=== PATIENT | male | born 1960 | race Caucasian/White ===

== ENCOUNTER 2020-04-03 17:35 | Inpatient (IN) | payer OTHER ==
[~2020-04-03 17:35] MED LIST: Iopamidol-370 76% 500 ML 1 ML ONE
[2020-04-03] MEDS ORDERED: Morphine 4 MG/ML VIAL ONE ×2 (17:51→19:46)
[2020-04-03] MEDS ORDERED: Ondansetron PF 4 MG/2 ML Vial ONE (17:51)
[2020-04-03 18:05] LABS: #Eosinphils 0.2 thou/uL (0.0-0.7); #Monocytes 0.8 thou/uL (0.11-0.59); #Neutrophils 6.3 thou/uL (1.40-6.50); %Basophils 0.3 % (0.0-1.0); %Lymphocytes 21.8 % (21.0-51.0); %Monocytes 8.4 % (0.0-10.0); %Neutrophils 67.5 % (42.0-75.0); Hemoglobin 12.5 g/dL (14.0-18.0); Mean Corpuscular HGB CONC 34.7 g/dL (32.0-36.0); Mean Corpuscular Hemoglobin 29.2 pg (27.0-31.0); Mean Platelet Volume 9.3 fL (7.4-10.4); Platelet Count 205 thou/uL (130-400); RBC Distribution Width 13.3 % (11.5-14.5); Red Blood Cell (RBC) Count 4.29 mill/uL (4.70-6.10); White Blood Cell (WBC) Count 9.3 thou/uL (4.8-10.8)
--- NOTE | 2020-04-03 18:05 | RAD ---
PORTABLE SUPINE CHEST: 04/03/20 INDICATION: Chest pain, shortness of breath. No comparison. The lung michaels appear clear. No infiltrate or vascular congestion. Heart and mediastinum unremarkabl e for this projection. IMPRESSION: No acute process identified. POS: AGW
--- NOTE | 2020-04-03 18:14 | RAD ---
LEFT HIP: 04/03/20 Two views. HISTORY: Injury. No evidence of fracture. No osseous abnormality identified. IMPRESSION: No acute findings. POS: AGW
--- NOTE | 2020-04-03 18:15 | RAD ---
2 views left forearm: 04/03/2020 COMPARISON: None HISTORY: Injury, trauma, pain FINDINGS: No fracture or dislocation. No radiopaque foreign body or subcutaneous gas. IMPRESSION: No acute findings.
--- NOTE | 2020-04-03 18:15 | RAD ---
Left ankle 2 views: 04/03/2020 COMPARISON: None HISTORY: Injury, trauma, pain FINDINGS: No fracture or dislocation. No radiopaque foreign body or subcutaneous gas. Mild enthesophy te formation at the origin of the plantar aponeurosis. IMPRESSION: No acute findings.
[2020-04-03 18:20] LABS: ALT (SGPT) 46 U/L (8-55); AST (SGOT) 39 U/L (5-34); Albumin 4.1 g/dL (3.5-5.0); Alkaline Phosphatase 53 U/L (40-110); Anion Gap 15 mmol/L (10-20); BUN (Urea Nitrogen) 74 mg/dL (8.4-25.7); Bilirubin, Total 0.3 mg/dL (0.2-1.2); Calc. Creatinine Clearance 0 mL/min (70-130); Calcium 9.3 mg/dL (7.8-10.44); Carbon Dioxide 21 mmol/L (22-29); Chloride 107 mmol/L (98-107); Estimated GFR-MDRD 23; Globulin 3.8 g/dL (2.4-3.5); Glucose 115 mg/dL (70-105); Potassium 4.3 mmol/L (3.5-5.1); Protein, Total 7.9 g/dL (6.0-8.3); Sodium 139 mmol/L (136-145)
--- NOTE | 2020-04-03 18:26 | RAD ---
LEFT KNEE: 04/03/20 Three views. HISTORY: Trauma. There is a fracture involving the lateral tibial plateau and lateral tibial condyle. Displacement of the plateau with depression. There is joint effusion with hematocrit level. IMPRESSION: Displaced fracture involving the lateral tibial plateau and lateral tibial condyle. POS: AGW
--- NOTE | 2020-04-03 18:27 | RAD ---
LEFT HAND: 04/03/20 Two views. HISTORY: Trauma. The carpals, metacarpals, and phalanges, appear intact on the two view study. There are mild degenera tive changes noted at the carpometacarpal joints, MCP and IP joints. IMPRESSION: No acute fracture identified. POS: AGW
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
--- NOTE | 2020-04-03 18:37 | CT ---
Head CT without contrast 04/03/2020: Comparison: None HISTORY: Injury, trauma, pain TECHNIQUE: Axial CT imaging at 5 mm intervals from vertex through skull base without contrast FINDINGS: The visualized paranasal sinuses and mastoid air cells are well-aerated. No displaced jamie rial fracture. No intracranial hemorrhage, midline shift, mass effect, or ventricular enlargement. IMPRESSION: No acute findings. Results called to Dr. Angel at 6:32 PM 04/03/2020
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
[2020-04-03] MEDS ORDERED: Acetaminophen 500 MG TAB ONE (19:46)
[2020-04-03] MEDS ORDERED: Gabapentin 300 MG CAP PO SCH (20:15)
[2020-04-03] MEDS ORDERED: Dextrose 50% Abboject 50 ML SYRINGE SLOW IVP PRN (21:26)
[2020-04-03] MEDS ORDERED: Dextrose 5% in Water 1,000 ML IV PRN (21:26)
[2020-04-03] MEDS ORDERED: HumaLOG 300 UNITS/3 ML VIAL SC PRN (21:29)
[2020-04-03] MEDS ORDERED: [UNRECOGNIZED DRUG - REMARK] PO SCH (21:30)
[2020-04-03 21:54] LABS: INR-International Normal Ratio 0.9; PTT 29.6 sec (22.9-36.1); Prothrombin Time 12.7 sec (12.0-14.7)
[2020-04-03] MEDS ORDERED: Lactated Ringer's 500 ML IV SCH (22:00)
--- NOTE | 2020-04-03 22:00 | CT ---
CT of the left knee: 04/03/2020 COMPARISON: None HISTORY: Trauma, tibial plateau fracture seen on recent radiograph TECHNIQUE: Axial CT imaging at 2.5 mm intervals through the left knee with coronal and sagittal refor matted imaging FINDINGS: There is a prominent lipomatous arthrosis present. There is skin thickening and subcutaneou s fat stranding within the distal aspect of the left thigh medially. No evidence for a patellar fracture. Imaged portions of the distal femur are intact. There is extensive comminuted fracture deformity involving the proximal tibia. Nondisplaced fracture lines extend through the medial tibial plateau obliquely and transversely. No evidence for depression is seen involving the medial tibial plateau fracture. There is a comminuted and displaced lateral tibial plateau fracture as well. The lateral tibial fracture fragment is displaced laterally by approximately 6 mm and there is approximately 4 mm of depression involving the lateral t ibial plateau fracture. No evidence for dislocation. No evidence for a fibular fracture. IMPRESSION: Extensive fracture deformity involving the articular aspect of the proximal left tibia. F ractures include the medial and lateral tibial plateaus. Lateral tibial plateau fracture demonstrates depression and lateral displacement as detailed above.
[2020-04-03] MEDS: Sodium Chloride 0.9% 1,000 ML IV SCH (23:06)
[2020-04-03] MEDS: Acetaminophen 500 MG TAB PO SCH (23:06)
[2020-04-03] MEDS: Ondansetron PF 4 MG/2 ML Vial IVP PRN (23:06)
[2020-04-03] MEDS: traMADol HCl 50 MG TAB PO SCH (23:07)
[2020-04-03] MEDS: Cyclobenzaprine 10 MG TAB PO PRN (23:07)
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
[2020-04-03 23:55] VITALS: BMI 35.2
[2020-04-04] MEDS: Morphine 4 MG/ML VIAL SLOW IVP PRN ×4 (00:51→21:41)
[2020-04-04] MEDS: traMADol HCl 50 MG TAB PO SCH ×4 (05:42→23:40)
[2020-04-04] MEDS: Acetaminophen 500 MG TAB PO SCH ×4 (05:42→23:40)
[2020-04-04 06:00] LABS: #Lymphocytes 0.9 thou/uL (1.20-3.40); #Monocytes 0.6 thou/uL (0.11-0.59); #Neutrophils 8.7 thou/uL (1.40-6.50); %Basophils 0.1 % (0.0-1.0); %Eosinophils 0.2 % (0.0-10.0); %Lymphocytes 9.2 % (21.0-51.0); %Monocytes 6.1 % (0.0-10.0); %Neutrophils 84.5 % (42.0-75.0); Hemoglobin 11.2 g/dL (14.0-18.0); Mean Corpuscular HGB CONC 35.3 g/dL (32.0-36.0); Mean Platelet Volume 9.9 fL (7.4-10.4); Platelet Count 158 thou/uL (130-400); RBC Distribution Width 13.4 % (11.5-14.5); Red Blood Cell (RBC) Count 3.73 mill/uL (4.70-6.10); White Blood Cell (WBC) Count 10.3 thou/uL (4.8-10.8)
[2020-04-04 06:10] LABS: Hemoglobin A1c 8.6 % (4.0-6.0)
[2020-04-04 06:23] LABS: Phosphorus 5.2 mg/dL (2.3-4.7)
[2020-04-04 06:26] LABS: Anion Gap 15 mmol/L (10-20); BUN (Urea Nitrogen) 69 mg/dL (8.4-25.7); Calc. Creatinine Clearance 50 mL/min (70-130); Calcium 8.6 mg/dL (7.8-10.44); Carbon Dioxide 18 mmol/L (22-29); Chloride 106 mmol/L (98-107); Estimated GFR-MDRD 24; Glucose 253 mg/dL (70-105); Magnesium 2.4 mg/dL (1.6-2.6); Potassium 5.3 mmol/L (3.5-5.1); Sodium 134 mmol/L (136-145)
[2020-04-04] MEDS ORDERED: Gabapentin 300 MG CAP PO SCH (09:00)
[2020-04-04] MEDS ORDERED: FLU VACC QS2020-21(6MOS UP)/PF 60 MCG/0.5 ML SYRINGE IM ONE (09:00)
--- NOTE | 2020-04-04 10:36 | RAD ---
PORTABLE CHEST: DATE: 04/04/2020. PROVIDED CLINICAL HISTORY: Trauma. FINDINGS: Comparison is made with the examination dated 04/03/2020. The cardiac silhouette appears enlarged. There is increased density at the left lung base which may reflect left basilar parenchymal opacity. Evaluation is limited by patient body habitus, portable technique, cardiomegaly, and lung hypoinflat ion. Lungs appear otherwise clear. No pleural fluid or pneumothorax apparent. IMPRESSION: Possible left basilar opacity. POS: ISSAC
[2020-04-04] MEDS: Ondansetron PF 4 MG/2 ML Vial IVP PRN ×2 (11:45→21:41)
[2020-04-04] MEDS: Sodium Chloride 0.9% 1,000 ML IV SCH (11:47)
[2020-04-04 12:40] LABS: SARS-CoV-2 MS2 Positive; SARS-CoV-2 N Gene Negative; SARS-CoV-2 S Gene Negative; SARS-CoV-2 by NAA Not Detected (NotDetected); SARS-CoV-2 orf1ab Negative
[2020-04-04] MEDS ORDERED: PHENYLEPHRINE-NS 100 MCG/ML 10 ML SYRINGE ONE (13:00)
[2020-04-04] MEDS ORDERED: EPHEDRINE 25 MG/5 ML SYRINGE ONE (13:00)
[2020-04-04] MEDS: Insulin Regular 300 UNITS/3 ML VIAL SC PRN ×3 (13:26→21:28)
[2020-04-04] MEDS ORDERED: Insulin Glargine 30 UNITS in Pre-Filled Syringe 1 EACH SC SCH (14:45)
[2020-04-04] MEDS ORDERED: Morphine 4 MG/ML VIAL SLOW IVP SCH (14:45)
[2020-04-04] MEDS: Metoclopramide HCl 10 MG/2 ML VIAL IVP PRN ×2 (15:04→20:21)
[2020-04-04] MEDS: Albuterol 200 PUFF (6.7GM INHALER) INH SCH ×2 (15:26→18:34)
[2020-04-04] MEDS ORDERED: Levofloxacin 500 mg/D5W 100 ml Premix Bag ONE (15:30)
[2020-04-04] MEDS ORDERED: Clindamycin/D5W 900 mg/50 ml Premix Bag ONE (15:30)
[2020-04-04] MEDS ORDERED: Midazolam HCl 2 mg/2 ml Vial ONE (16:15)
[2020-04-04] MEDS ORDERED: Fentanyl 100 MCG/2 ML VIAL ONE ×3 (16:15→19:21)
[2020-04-04] MEDS ORDERED: Ketamine 50 MG/ML (10ML VIAL) ONE (16:22)
[2020-04-04] MEDS ORDERED: Propofol 500 MG/50 ML VIAL ONE (16:22)
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
--- NOTE | 2020-04-04 18:32 | RAD ---
Intraoperative imaging of the left knee: 04/04/2020 HISTORY: Fracture FINDINGS: 3 intraoperative images demonstrate treatment of the previously noted fracture of the proxi mal tibia with a lateral screw and plate fixation. There is anatomic alignment at the fracture site IMPRESSION: Intraoperative imaging as above.
[2020-04-04] MEDS ORDERED: Ondansetron HCl/PF 4 MG/2 ML Vial IVP PRN (18:44)
[2020-04-04] MEDS ORDERED: Promethazine HCl 25 MG/ML VIAL SLOW IVP PRN (18:44)
[2020-04-04] MEDS ORDERED: Promethazine HCl 25 MG/ML VIAL IM PRN (18:44)
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
[2020-04-04] MEDS: Insulin Glargine 30 UNITS in Pre-Filled Syringe 1 EACH SC SCH (20:21)
[2020-04-04] MEDS: Atorvastatin Calcium 10 MG TAB PO SCH (20:21)
[2020-04-04] MEDS ORDERED: Pravastatin Sodium 40 MG TAB PO SCH (21:00)
[2020-04-04] MEDS: Clindamycin/D5W 900 MG in Premix Bag 1 BAG IVPB SCH (21:44)
[2020-04-04] MEDS ORDERED: Insulin Glargine 10 UNITS in Pre-Filled Syringe 1 EACH SC SCH (22:15)
[2020-04-04] MEDS: Cyclobenzaprine 10 MG TAB PO PRN (23:40)
[2020-04-04] MEDS: HumaLOG 300 UNITS/3 ML VIAL SC PRN (23:58)
[2020-04-05] MEDS: Albuterol 200 PUFF (6.7GM INHALER) INH SCH ×4 (00:13→19:29)
[2020-04-05] MEDS ORDERED: Sodium Chloride 0.9% 500 ML IV SCH (00:15)
[2020-04-05] MEDS: Morphine 4 MG/ML VIAL SLOW IVP PRN (01:24)
[2020-04-05] MEDS ORDERED: oxyCODONE 5 MG TAB PO SCH (02:00)
[2020-04-05] MEDS: Sodium Chloride 0.9% 1,000 ML IV SCH ×2 (02:49→17:17)
[2020-04-05] MEDS: traMADol HCl 50 MG TAB PO SCH ×2 (05:32→20:22)
[2020-04-05] MEDS: Clindamycin/D5W 900 MG in Premix Bag 1 BAG IVPB SCH (05:33)
[2020-04-05] MEDS: Acetaminophen 500 MG TAB PO SCH ×4 (05:33→23:28)
[2020-04-05] MEDS: HumaLOG 300 UNITS/3 ML VIAL SC PRN ×3 (05:34→12:53)
[2020-04-05 06:22] LABS: #Lymphocytes 0.7 thou/uL (1.20-3.40); #Monocytes 0.9 thou/uL (0.11-0.59); #Neutrophils 10.2 thou/uL (1.40-6.50); %Basophils 0.1 % (0.0-1.0); %Eosinophils 0.3 % (0.0-10.0); %Lymphocytes 5.9 % (21.0-51.0); %Monocytes 7.9 % (0.0-10.0); %Neutrophils 85.8 % (42.0-75.0); Hemoglobin 10.1 g/dL (14.0-18.0); Mean Corpuscular HGB CONC 33.1 g/dL (32.0-36.0); Mean Corpuscular Hemoglobin 28.9 pg (27.0-31.0); Mean Corpuscular Volume 87.5 fL (78.0-98.0); Mean Platelet Volume 9.7 fL (7.4-10.4); Platelet Count 162 thou/uL (130-400); RBC Distribution Width 13.6 % (11.5-14.5); White Blood Cell (WBC) Count 11.9 thou/uL (4.8-10.8)
[2020-04-05 06:39] LABS: Anion Gap 15 mmol/L (10-20); BUN (Urea Nitrogen) 74 mg/dL (8.4-25.7); Calc. Creatinine Clearance 43 mL/min (70-130); Calcium 8.5 mg/dL (7.8-10.44); Carbon Dioxide 21 mmol/L (22-29); Chloride 105 mmol/L (98-107); Estimated GFR-MDRD 21; Glucose 300 mg/dL (70-105); Magnesium 2.6 mg/dL (1.6-2.6); Potassium 5.1 mmol/L (3.5-5.1); Sodium 136 mmol/L (136-145)
--- NOTE | 2020-04-05 08:18 | RAD ---
PORTABLE CHEST: HISTORY: Rib fractures. Lower lobe opacity. COMPARISON: 04/04/2020 exam. FINDINGS: Heart size is enlarged. Some increased density in the retrocardiac region is still apparent which co uld represent atelectasis versus some infiltrate. IMPRESSION: 1. Cardiomegaly. 2. Some more linear parenchymal change in the retrocardiac region suggesting atelectasis versus deve loping infiltrates. Overall stable exam. POS: SHERICE
[2020-04-05] MEDS: Insulin Glargine 30 UNITS in Pre-Filled Syringe 1 EACH SC SCH (08:19)
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
[2020-04-05] MEDS: Enoxaparin Sodium 30 MG/0.3 ML SYRINGE SC SCH (09:57)
--- NOTE | 2020-04-05 10:52 | RAD ---
Portable frontal chest radiograph: 04/05/2020 10:48am COMPARISON: 04/05/2020 HISTORY: Gastroparesis FINDINGS: This study is compared to the prior study performed at 5:14 AM. Heart and mediastinal conto urs are stable. Mild linear interstitial density noted in the perihilar regions. No pneumothorax, lobar consolidation, or alveolar edema. Aeration in the left base has slightly improved. IMPRESSION: Slight interval improvement in left basilar aeration-otherwise unchanged.
--- NOTE | 2020-04-05 11:47 | RAD ---
SUPINE ABDOMEN: Date: 04/05/2020 INDICATION: Gastroparesis. Comparison made to CT abdomen dated 04/03/2020. FINDINGS: Gaseous distention of the stomach. Scattered stool and gas in the colon and there is some mild gaseou s distention of small bowel loops. The findings are nonspecific. IMPRESSION: Gaseous distention of the stomach. Nonspecific bowel gas pattern. POS: AH
[2020-04-05] MEDS: Metoclopramide HCl 10 MG/2 ML VIAL IVP SCH ×3 (12:52→23:28)
[2020-04-05] MEDS: Neostigmine 0.5 MG in Admixture Fee 1 EACH SC SCH ×3 (12:53→23:28)
[2020-04-05] MEDS ORDERED: Simethicone Chewable 80 MG TAB PO PRN (13:14)
[2020-04-05] MEDS: Gabapentin 100 MG CAP PO SCH ×2 (15:58→20:22)
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
[2020-04-05] MEDS: Cyclobenzaprine 10 MG TAB PO PRN (19:21)
[2020-04-05] MEDS: Atorvastatin Calcium 10 MG TAB PO SCH (20:22)
[2020-04-05] MEDS: Insulin Glargine 40 UNITS in Pre-Filled Syringe 1 EACH SC SCH (21:43)
[2020-04-05] MEDS: hydrALAZINE 25 MG TAB PO PRN (21:55)
[2020-04-05] MEDS: Morphine 2 MG/ML VIAL SLOW IVP PRN (21:56)
[2020-04-06] MEDS: Morphine 2 MG/ML VIAL SLOW IVP PRN ×3 (02:46→14:58)
[2020-04-06] MEDS: HumaLOG 300 UNITS/3 ML VIAL SC PRN ×4 (04:23→21:44)
[2020-04-06] MEDS: Metoclopramide HCl 10 MG/2 ML VIAL IVP SCH ×4 (05:54→23:57)
[2020-04-06] MEDS: Cyclobenzaprine 10 MG TAB PO PRN ×2 (05:54→23:57)
[2020-04-06] MEDS: Neostigmine 0.5 MG in Admixture Fee 1 EACH SC SCH ×4 (05:55→23:58)
[2020-04-06] MEDS: Acetaminophen 500 MG TAB PO SCH (05:55)
[2020-04-06] MEDS: Sodium Chloride 0.9% 1,000 ML IV SCH ×2 (06:23→08:59)
[2020-04-06] MEDS: Albuterol 200 PUFF (6.7GM INHALER) INH SCH ×4 (06:58→21:16)
[2020-04-06] MEDS: Gabapentin 100 MG CAP PO SCH ×3 (08:51→20:17)
[2020-04-06] MEDS: traMADol HCl 50 MG TAB PO SCH ×2 (08:52→20:16)
[2020-04-06] MEDS: Enoxaparin Sodium 30 MG/0.3 ML SYRINGE SC SCH (08:54)
[2020-04-06] MEDS: Insulin Glargine 40 UNITS in Pre-Filled Syringe 1 EACH SC SCH (08:54)
[2020-04-06] MEDS: Insulin Glargine 45 UNITS in Pre-Filled Syringe 1 EACH SC SCH ×2 (10:48→21:43)
[2020-04-06] MEDS ORDERED: oxyCODONE 5 MG TAB PO SCH (12:00)
[2020-04-06] MEDS: Acetaminophen/Codeine 30-300mg Tablet PO SCH ×3 (12:49→23:56)
[2020-04-06] MEDS: Acetaminophen 325 MG TAB PO SCH ×3 (12:49→23:56)
[2020-04-06] MEDS: Atorvastatin Calcium 10 MG TAB PO SCH (20:17)
[2020-04-07] MEDS: Albuterol 200 PUFF (6.7GM INHALER) INH SCH ×5 (00:39→21:41)
[2020-04-07] MEDS: hydrALAZINE 25 MG TAB PO PRN (03:56)
[2020-04-07 05:30] LABS: Anion Gap 11 mmol/L (10-20); BUN (Urea Nitrogen) 44 mg/dL (8.4-25.7); Calc. Creatinine Clearance 68 mL/min (70-130); Calcium 8.6 mg/dL (7.8-10.44); Carbon Dioxide 21 mmol/L (22-29); Chloride 109 mmol/L (98-107); Estimated GFR-MDRD 35; Glucose 149 mg/dL (70-105); Magnesium 2.4 mg/dL (1.6-2.6); Phosphorus 3.4 mg/dL (2.3-4.7); Potassium 4.4 mmol/L (3.5-5.1); Sodium 137 mmol/L (136-145)
[2020-04-07] MEDS: Acetaminophen/Codeine 30-300mg Tablet PO SCH ×3 (06:07→17:10)
[2020-04-07] MEDS: Acetaminophen 325 MG TAB PO SCH ×3 (06:08→17:10)
[2020-04-07] MEDS: Metoclopramide HCl 10 MG/2 ML VIAL IVP SCH ×3 (06:08→17:11)
[2020-04-07] MEDS: Neostigmine 0.5 MG in Admixture Fee 1 EACH SC SCH ×3 (06:12→18:14)
[2020-04-07] MEDS: Gabapentin 100 MG CAP PO SCH ×3 (10:08→20:06)
[2020-04-07] MEDS: Enoxaparin Sodium 30 MG/0.3 ML SYRINGE SC SCH (10:08)
[2020-04-07] MEDS: traMADol HCl 50 MG TAB PO SCH ×2 (10:09→20:06)
[2020-04-07] MEDS: Insulin Glargine 45 UNITS in Pre-Filled Syringe 1 EACH SC SCH (10:22)
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
[2020-04-07] MEDS: HumaLOG 300 UNITS/3 ML VIAL SC PRN ×2 (17:11→21:54)
[2020-04-07] MEDS: Atorvastatin Calcium 10 MG TAB PO SCH (20:06)
[2020-04-07] MEDS: Senokot S 8.6-50 MG TAB PO SCH (20:08)
[2020-04-07] MEDS: Cyclobenzaprine 10 MG TAB PO PRN (21:54)
[2020-04-08] MEDS: hydrALAZINE 25 MG TAB PO PRN (00:14)
[2020-04-08] MEDS: Metoclopramide HCl 10 MG/2 ML VIAL IVP SCH ×4 (00:14→17:13)
[2020-04-08] MEDS: Acetaminophen 325 MG TAB PO SCH ×4 (00:15→17:14)
[2020-04-08] MEDS: Neostigmine 0.5 MG in Admixture Fee 1 EACH SC SCH ×4 (00:15→18:01)
[2020-04-08] MEDS: Acetaminophen/Codeine 30-300mg Tablet PO SCH ×4 (00:15→17:14)
[2020-04-08] MEDS ORDERED: cloNIDine 0.2 MG TAB PO PRN (03:56)
[2020-04-08] MEDS: HumaLOG 300 UNITS/3 ML VIAL SC PRN ×3 (06:29→17:12)
[2020-04-08] MEDS: Albuterol 200 PUFF (6.7GM INHALER) INH SCH ×3 (06:47→19:22)
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
[2020-04-08] MEDS ORDERED: Bisacodyl 10 MG SUPP PR SCH (09:00)
[2020-04-08] MEDS ORDERED: Tamsulosin HCl 0.4 MG CAP PO SCH (09:00)
[2020-04-08] MEDS ORDERED: Polyethylene Glycol 3350 17 GM Packet PO SCH (09:00)
[2020-04-08] MEDS ORDERED: Milk Of Magnesia 30 ML UDCUP PO SCH (09:00)
[2020-04-08] MEDS ORDERED: Non-Formulary Item 1 EACH (Omeprazole [Omeprazole] 40 MG Capsule.Dr) PO SCH (09:00)
[2020-04-08] MEDS: Gabapentin 100 MG CAP PO SCH ×2 (09:01→11:50)
[2020-04-08] MEDS: Enoxaparin Sodium 30 MG/0.3 ML SYRINGE SC SCH (09:09)
[2020-04-08] MEDS: Insulin Glargine 45 UNITS in Pre-Filled Syringe 1 EACH SC SCH (09:23)
[2020-04-08] MEDS: traMADol HCl 50 MG TAB PO SCH (09:25)
[2020-04-08] MEDS: Senokot S 8.6-50 MG TAB PO SCH (09:25)
[2020-04-08 16:11] VITALS: BP 144/69; TEMP 98.8
[2020-04-08] MEDS ORDERED: Pravastatin Sodium 40 MG TAB PO SCH (21:00)
[2020-04-08] MEDS ORDERED: Insulin Glargine 35 UNITS in Pre-Filled Syringe 1 EACH SC SCH (21:00)
[2020-04-08] MEDS ORDERED: Atorvastatin Calcium 20 MG TAB PO SCH (21:00)
[2020-04-08] MEDS ORDERED: Gabapentin 300 MG CAP PO SCH (21:00)
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
[2020-04-09] MEDS ORDERED: Amlodipine 10 MG TAB PO SCH (09:00)
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
== END 2020-04-08 20:07 | DRG 493 ==
LOC: ERS 17:35 → SURG B 21:36
PROVIDERS: ADMIT Orthopaedic Surgery; ATTEND Orthopaedic Surgery
PROC: 0QSH04Z Reposition Left Tibia with Internal Fixation Device, Open Approach (ICD-10-PCS; principal; 2020-04-04)
DX: S82.142A Displaced bicondylar fracture of left tibia, initial encounter for closed fracture (principal); S22.41XA Multiple fractures of ribs, right side, initial encounter for closed fracture; N17.9 Acute kidney failure, unspecified; K86.1 Other chronic pancreatitis; K56.7 Ileus, unspecified; N18.9 Chronic kidney disease, unspecified; E11.22 Type 2 diabetes mellitus with diabetic chronic kidney disease; E11.43 Type 2 diabetes mellitus with diabetic autonomic (poly)neuropathy; K31.84 Gastroparesis; E11.65 Type 2 diabetes mellitus with hyperglycemia; E66.01 Morbid (severe) obesity due to excess calories; L40.9 Psoriasis, unspecified; I12.9 Hypertensive chronic kidney disease with stage 1 through stage 4 chronic kidney disease, or unspecified chronic kidney disease; Z90.49 Acquired absence of other specified parts of digestive tract; Z88.0 Allergy status to penicillin; Z88.2 Allergy status to sulfonamides; Z79.899 Other long term (current) drug therapy; Z68.35 Body mass index [BMI] 35.0-35.9, adult; Z20.828 Contact with and (suspected) exposure to other viral communicable diseases
CPT/HCPCS: 36415; 36416; 70450; 71045; 71260; 72125; 74018; 74177; 76000; 80048; 80053; 83036; 83735; 83880; 84100; 85025; 85610; 85730; 87635; 94640; 96374; 96375; 96376; C1713; G0390; J1650; J1815; J1956; J2250; J2270; J2405; J2704; J2710; J2765; J3010; J3490; J7620; Q9967; U0003

== ENCOUNTER 2020-04-16 07:41 | Inpatient (IN) | payer OTHER, SELFPAY ==
[2020-04-16] MEDS ORDERED: Azithromycin 500 MG VIAL ONE (08:23)
[2020-04-16] MEDS ORDERED: cefTRIAXone\\ROCEPHIN 2 GM VIAL ONE (08:23)
--- NOTE | 2020-04-16 08:31 | RAD ---
EXAM: Single view of the chest HISTORY: Shortness of breath and difficulty breathing COMPARISON: 04/15/2020 FINDINGS: Single view of the chest shows an enlarged cardiomediastinal silhouette. Opacity seen in th e right lung base which may represent atelectasis or an infiltrate. An adjacent pleural effusion may be present. No acute osseous abnormality. IMPRESSION: Right lower lobe atelectasis versus infiltrate
[2020-04-16 08:57] LABS: Hemoglobin 7.9 g/dL (14.0-18.0); Mean Corpuscular Volume 85.7 fL (78.0-98.0); Mean Platelet Volume 8.6 fL (7.4-10.4); Platelet Count 332 thou/uL (130-400); RBC Distribution Width 12.5 % (11.5-14.5); Red Blood Cell (RBC) Count 2.64 mill/uL (4.70-6.10); White Blood Cell (WBC) Count 9.9 thou/uL (4.8-10.8)
[2020-04-16] MEDS ORDERED: Ondansetron PF 4 MG/2 ML Vial ONE (09:06)
[2020-04-16 09:12] LABS: ALT (SGPT) 18 U/L (8-55); AST (SGOT) 14 U/L (5-34); Albumin 3.3 g/dL (3.5-5.0); Alkaline Phosphatase 61 U/L (40-110); Anion Gap 16 mmol/L (10-20); BUN (Urea Nitrogen) 70 mg/dL (8.4-25.7); Bilirubin, Total 0.4 mg/dL (0.2-1.2); Calc. Creatinine Clearance 0 mL/min (70-130); Calcium 8.9 mg/dL (7.8-10.44); Carbon Dioxide 26 mmol/L (22-29); Chloride 94 mmol/L (98-107); Estimated GFR-MDRD 22; Globulin 3.7 g/dL (2.4-3.5); Glucose 196 mg/dL (70-105); Lipase 34 U/L (8-78); Sodium 131 mmol/L (136-145)
[2020-04-16 09:16] LABS: #Eosinphils 0.1 thou/uL (0.0-0.7); #Lymphocytes 1.2 thou/uL (1.20-3.40); #Monocytes 0.8 thou/uL (0.11-0.59); #Neutrophils 7.8 thou/uL (1.40-6.50); %Basophils 0.1 % (0.0-1.0); %Eosinophils 0.7 % (0.0-10.0); %Lymphocytes 12.3 % (21.0-51.0); %Monocytes 7.6 % (0.0-10.0); %Neutrophils 79.3 % (42.0-75.0)
[2020-04-16 09:19] LABS: SARS-CoV-2 NAA Rapid Test Not Detected (NotDetected)
[2020-04-16 09:52] LABS: Bilirubin Negative (Negative); Blood, Urine 3+ (Negative); Clarity Extra Turbid (Clear); Glucose, Urine (Dipstick) 500 mg/dL (Negative); Ketone, Urine Negative (Negative); Leukocyte 500 Leu/uL (Negative); Nitrite Negative (Negative); Protein, Urine (Dipstick) 100 mg/dL (Neg-Trace); Specific Gravity, Urine 1.014 (1.002-1.036); Squamous Epithelial 0-3 HPF (0-3); Urobilinogen Normal mg/dL (Less than 2); WBC/HPF Greater than 50 HPF (0-3); pH, Urine 5.5 (5.0-9.0)
[2020-04-16 10:00] LABS: Bacteria/HPF 1+ HPF (None Seen); RBC/HPF 21-50 HPF (0-3)
[2020-04-16 11:09] LABS: Actual Bicarbonate (HCO3a) 24.3 mEq/L (22-28); Analyzer IN Cardio ER; Base Excess (BEa) -0.8 mEq/L (-2.0 to +3.0); CO2 Tension 42.3 mmHg (35.0-45.0); Calcium, Ionized (arterial) 1.11 mmol/L (1.12-1.30); Carboxyhemoglobin (COHb) 0.4 gm% (0.0-3.0); Hemoglobin (Hb) 10.4 g/dL (14.0-18.0); Potassium - ABG Lab 4.92 mmol/L (3.70-5.30); pH, Arterial 7.38 (7.35-7.45)
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
[2020-04-16 11:16] LABS: O2 Tension (PaO2), arterial 59.7 mmHg (80.0-100.0); Puncture Site RRA
[2020-04-16 11:17] LABS: ALV-art Gradient 172.625 mmHg (0-20)
--- NOTE | 2020-04-16 12:36 | CT ---
CT BRAIN WITHOUT CONTRAST: HISTORY: Altered mental status. COMPARISON: 04/03/2020. FINDINGS: No evidence of acute infarct, hemorrhage, midline shift, or abnormal extraaxial fluid collections is seen. The ventricular size is normal and the basilar cisterns patent. The bony calvarium is intact. The visualized paranasal sinuses and mastoid air cells are well aerated. IMPRESSION: No CT evidence of acute intracranial process. POS: AH
[2020-04-16] MEDS ORDERED: Ondansetron ODT 4 MG TAB PO PRN (14:07)
[2020-04-16] MEDS ORDERED: Rib Fracture Protocol PO SCH (14:07)
[2020-04-16] MEDS ORDERED: Dextrose 50% Abboject 50 ML SYRINGE SLOW IVP PRN (14:07)
[2020-04-16] MEDS ORDERED: Dextrose 5% in Water 1,000 ML IV PRN (14:07)
[2020-04-16] MEDS ORDERED: Acetaminophen/Codeine 30-300mg Tablet PO PRN (14:07)
[2020-04-16 14:08] VITALS: BMI 43.5
[2020-04-16] MEDS ORDERED: Furosemide 20 MG/2 ML VIAL SLOW IVP SCH (14:15)
[2020-04-16] MEDS ORDERED: Cyclobenzaprine 10 MG TAB PO PRN (14:30)
[2020-04-16] MEDS ORDERED: Gabapentin 300 MG CAP PO SCH (15:00)
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
[2020-04-16] MEDS ORDERED: Ibuprofen 800 MG TAB PO SCH (18:00)
[2020-04-16] MEDS: Acetaminophen 500 MG TAB PO SCH (18:29)
[2020-04-16] MEDS: traMADol HCl 50 MG TAB PO SCH ×2 (18:30→23:12)
[2020-04-16 20:42] LABS: #Eosinphils 0.1 thou/uL (0.0-0.7); #Lymphocytes 1.1 thou/uL (1.20-3.40); #Monocytes 0.9 thou/uL (0.11-0.59); #Neutrophils 8.6 thou/uL (1.40-6.50); %Basophils 0.2 % (0.0-1.0); %Eosinophils 0.9 % (0.0-10.0); %Lymphocytes 10.4 % (21.0-51.0); %Monocytes 8.5 % (0.0-10.0); Hemoglobin 7.8 g/dL (14.0-18.0); Mean Corpuscular Hemoglobin 29.4 pg (27.0-31.0); Mean Corpuscular Volume 86.4 fL (78.0-98.0); Mean Platelet Volume 8.3 fL (7.4-10.4); Platelet Count 368 thou/uL (130-400); RBC Distribution Width 12.6 % (11.5-14.5); Red Blood Cell (RBC) Count 2.65 mill/uL (4.70-6.10); White Blood Cell (WBC) Count 10.8 thou/uL (4.8-10.8)
[2020-04-16 21:04] LABS: Anion Gap 16 mmol/L (10-20); BUN (Urea Nitrogen) 65 mg/dL (8.4-25.7); Calc. Creatinine Clearance 49 mL/min (70-130); Calcium 8.5 mg/dL (7.8-10.44); Carbon Dioxide 25 mmol/L (22-29); Chloride 98 mmol/L (98-107); Estimated GFR-MDRD 23; Glucose 223 mg/dL (70-105); Magnesium 3.2 mg/dL (1.6-2.6); Phosphorus 5.2 mg/dL (2.3-4.7); Potassium 4.9 mmol/L (3.5-5.1); Sodium 134 mmol/L (136-145)
[2020-04-16] MEDS: Acetaminophen/Codeine 30-300mg Tablet PO PRN (23:10)
[2020-04-16] MEDS: Insulin Regular 300 UNITS/3 ML VIAL SC PRN (23:13)
[2020-04-17] MEDS: Acetaminophen 500 MG TAB PO SCH ×4 (00:23→17:41)
[2020-04-17] MEDS: Gabapentin 100 MG CAP PO SCH ×3 (00:23→20:20)
[2020-04-17 05:37] LABS: #Eosinphils 0.1 thou/uL (0.0-0.7); #Lymphocytes 1.4 thou/uL (1.20-3.40); #Monocytes 0.8 thou/uL (0.11-0.59); #Neutrophils 6.3 thou/uL (1.40-6.50); %Basophils 0.1 % (0.0-1.0); %Eosinophils 1.4 % (0.0-10.0); %Lymphocytes 16.3 % (21.0-51.0); %Monocytes 9.5 % (0.0-10.0); %Neutrophils 72.7 % (42.0-75.0); Mean Corpuscular HGB CONC 33.3 g/dL (32.0-36.0); Mean Corpuscular Hemoglobin 29.1 pg (27.0-31.0); Mean Corpuscular Volume 87.2 fL (78.0-98.0); Mean Platelet Volume 8.2 fL (7.4-10.4); Platelet Count 354 thou/uL (130-400); RBC Distribution Width 12.5 % (11.5-14.5); Red Blood Cell (RBC) Count 2.74 mill/uL (4.70-6.10); White Blood Cell (WBC) Count 8.7 thou/uL (4.8-10.8)
[2020-04-17 05:57] LABS: Anion Gap 17 mmol/L (10-20); BUN (Urea Nitrogen) 64 mg/dL (8.4-25.7); Calc. Creatinine Clearance 54 mL/min (70-130); Calcium 8.6 mg/dL (7.8-10.44); Carbon Dioxide 25 mmol/L (22-29); Chloride 98 mmol/L (98-107); Estimated GFR-MDRD 26; Glucose 200 mg/dL (70-105); Magnesium 3.3 mg/dL (1.6-2.6); Potassium 4.5 mmol/L (3.5-5.1); Sodium 135 mmol/L (136-145)
[2020-04-17] MEDS: traMADol HCl 50 MG TAB PO SCH ×4 (05:59→20:48)
[2020-04-17] MEDS: Insulin Regular 300 UNITS/3 ML VIAL SC PRN ×4 (06:01→20:54)
[2020-04-17] MEDS: Famotidine 20 MG TAB PO SCH (08:53)
--- NOTE | 2020-04-17 09:55 | RAD ---
PORTABLE CHEST: 04/17/20 PROVIDED CLINICAL HISTORY: Dyspnea. COMPARISON: 04/16/2020 FINDINGS: The cardiac silhouette remains enlarged. Increased conspicuity to right basilar pleural parenchymal o pacity. Prominence of the pulmonary vasculature is noted. There is no evidence for pneumothorax. IMPRESSION: Cardiomegaly and pulmonary vascular congestion with right basilar pleural parenchymal opacity that ap pears increased in conspicuity with respect to prior. POS: ISSAC
[2020-04-17] MEDS ORDERED: Furosemide 20 MG/2 ML VIAL SLOW IVP SCH (11:30)
[2020-04-17] MEDS ORDERED: Loperamide HCl 2 MG CAP PO PRN (13:53)
[2020-04-17] MEDS ORDERED: cloNIDine 0.1 MG TAB PO PRN (13:53)
--- NOTE | 2020-04-17 15:44 | PDOC.NEPPN ---
- Subjective Encounter Date: 04/17/20 Subjective: Patient is seen and examined in the room. He states that he is feeling better than yesterday. He is currently sitting in the chair and watching movie. - Objective Vital Signs & Weight: Vital Signs (12 hours) Temp Pulse Resp BP Pulse Ox 04/17/20 11:36 97.6 F 81 18 168/71 H 91 L 04/17/20 07:27 79 16 94 L 04/17/20 07:23 98.4 F 77 18 150/71 H 92 L Weight Weight 270 lb 0.002 oz I&O: 04/16/20 04/17/20 04/18/20 06:59 06:59 05:59 Intake Total 240 Output Total 950 Balance -710 Result Diagrams: 04/17/20 05:25 04/17/20 05:25 Additional Labs: Accuchecks 04/17/20 04/17/20 04/16/20 11:33 06:00 21:20 POC Glucose 257 H 185 H 225 H Nephrology ROS - Review of Systems Other: Review of systems Gen.: No fever, no chills All the 14 systems reviewed except for the ones mentioned above are negative - Medication Medications: Active Medications Generic Name Dose Route Start Last Admin Trade Name Freq PRN Reason Stop Dose Admin Acetaminophen 500 mg 04/16/20 18:00 04/17/20 11:24 Acetaminophen 500 Mg Tab PO 500 mg Q6HR ZUNILDA Administration Acetaminophen/Codeine Phosphate 2 tab 04/16/20 14:07 04/16/20 23:10 Acetaminophen/Codeine 30-300mg Tablet PO 2 tab Q6H PRN Administration Severe Pain (7-10) Albuterol/Ipratropium 3 ml 04/16/20 18:30 04/17/20 12:55 Ipratropium/Albuterol Sulfate 3 Ml Neb NEB 3 ml TID-RT ZUNILDA Administration Famotidine 20 mg 04/17/20 09:00 04/17/20 08:53 Famotidine 20 Mg Tab PO 20 mg DAILY ZUNILDA Administration Gabapentin 100 mg 04/16/20 21:00 04/17/20 08:53 Gabapentin 100 Mg Cap PO Not Given BID ZUNILDA Insulin Human Regular 0 units 04/16/20 14:07 04/17/20 11:34 Insulin Regular 300 Units/3 Ml Vial SC 4 unit .MILD SLIDING SCALE PRN Administration Mild Correctional Scale Insulin Human Regular 0 units 04/16/20 14:07 04/16/20 23:13 Insulin Regular 300 Units/3 Ml Vial SC 2 unit .BEDTIME SLIDING SC PRN Administration Bedtime Correctional Scale Levofloxacin 750 mg 04/17/20 06:00 04/17/20 05:58 Levofloxacin 750 Mg Tab PO 750 mg 0600 ZUNILDA Administration Tramadol HCl 100 mg 04/16/20 18:00 04/17/20 11:24 Tramadol Hcl 50 Mg Tab PO 100 mg Q6HR ZUNILDA Administration - Exam General - other findings: Patient is comfortable, not in pain. He is sitting in chair Eye: PERRL, anicteric sclera ENT: normocephalic atraumatic, no oropharyngeal lesions Neck: supple, symmetric, no lymphadenopathy Respiratory: no wheezes Respiratory - other findings: Air entry equal bilateral, coarse breath sounds, scattered crackles Cardiovascular: RRR, no murmur, no rubs Gastrointestinal: soft, non-tender, non-distended, normal bowel sounds, no r igidity Extremities: no cyanosis (Left lower extremity in brace, right lower extremity 1+ pitting edema) Skin: normal turgor (Scattered silvery scale patches suggestive of psoriasis) Neurological: CN's grossly intact, normal sensation to touch, no focal deficits Neurological - other findings: Patient is awake, following commands Musculoskeletal: no muscle wasting PSYCH: normal affect, normal behavior Nephrology Results - Labs Result Diagrams: 04/17/20 05:25 04/17/20 05:25 Lab results: WBC 8.7 thou/uL (4.8-10.8) 04/17/20 05:25 Hgb 8.0 g/dL (14.0-18.0) L 04/17/20 05:25 Hct 23.9 % (42.0-52.0) L 04/17/20 05:25 MCV 87.2 fL (78.0-98.0) 04/17/20 05:25 Plt Count 354 thou/uL (130-400) 04/17/20 05:25 Neutrophils % 72.7 % (42.0-75.0) 04/17/20 05:25 ABG pH 7.38 (7.35-7.45) 04/16/20 11:10 ABG pCO2 42.3 mmHg (35.0-45.0) 04/16/20 11:10 ABG pO2 59.7 mmHg (80.0-100.0) L* 04/16/20 11:10 Sodium 135 mmol/L (136-145) L 04/17/20 05:25 Potassium 4.5 mmol/L (3.5-5.1) 04/17/20 05:25 Chloride 98 mmol/L (98-107) 04/17/20 05:25 Carbon Dioxide 25 mmol/L (22-29) 04/17/20 05:25 BUN 64 mg/dL (8.4-25.7) H 04/17/20 05:25 Creatinine 2.56 mg/dL (0.7-1.3) H 04/17/20 05:25 Glucose 200 mg/dL (70-105) H 04/17/20 05:25 Lactic Acid 1.0 mmol/L (0.5-2.2) 04/16/20 08:33 Calcium 8.6 mg/dL (7.8-10.44) 04/17/20 05:25 Total Bilirubin 0.4 mg/dL (0.2-1.2) 04/16/20 08:33 AST 14 U/L (5-34) 04/16/20 08:33 ALT 18 U/L (8-55) 04/16/20 08:33 Alkaline Phosphatase 61 U/L (40-110) 04/16/20 08:33 Troponin I 0.014 ng/mL (< 0.028) 04/16/20 08:33 B-Natriuretic Peptide 188.2 pg/mL (0-100) H 04/16/20 08:33 Serum Total Protein 7.0 g/dL (6.0-8.3) 04/16/20 08:33 Albumin 3.3 g/dL (3.5-5.0) L 04/16/20 08:33 Lipase 34 U/L (8-78) 04/16/20 08:33 Urine Ketones Negative mg/dL (Negative) 04/16/20 09:25 Urine Blood 3+ (Negative) A 04/16/20 09:25 Urine Nitrite Negative (Negative) 04/16/20 09:25 Ur Leukocyte Esterase 500 Belkis/uL (Negative) A 04/16/20 09:25 Urine RBC 21-50 HPF (0-3) A 04/16/20 09:25 Urine WBC Greater than 50 HPF (0-3) A 04/16/20 09:25 Ur Squamous Epith Cells 0-3 HPF (0-3) 04/16/20 09:25 Urine Bacteria 1+ HPF (None Seen) A 04/16/20 09:25 Sodium 135 mmol/L (136-145) L 04/17/20 05:25 Potassium 4.5 mmol/L (3.5-5.1) 04/17/20 05:25 Chloride 98 mmol/L (98-107) 04/17/20 05:25 Carbon Dioxide 25 mmol/L (22-29) 04/17/20 05:25 Anion Gap 17 mmol/L (-) 04/17/20 05:25 BUN 64 mg/dL (8.4-25.7) H 04/17/20 05:25 Creatinine 2.56 mg/dL (0.7-1.3) H 04/17/20 05:25 Glucose 200 mg/dL (70-105) H 04/17/20 05:25 Calcium 8.6 mg/dL (7.8-10.44) 04/17/20 05:25 Phosphorus 5.0 mg/dL (2.3-4.7) H 04/17/20 05:25 Magnesium 3.3 mg/dL (1.6-2.6) H 04/17/20 05:25 Albumin 3.3 g/dL (3.5-5.0) L 04/16/20 08:33 Nephrology AP PN - Plan Acute on chronic kidney disease stage IV Hyponatremia Anemia Diabetes mellitus Hypertension Sepsis secondary to pneumonia and UTI Patient has non-oliguric CESAR. He had about 1000 mL of urine output after Lasix administration this morning. Etiology could be multifactorial including sepsis in the setting of diabetic nephropathy and hypertensive nephrosclerosis. No need of further diuresis at this point although patient is slightly hyper volemic. Will evaluate daily for diuretics. Patient sodium level is improving, continue to monitor. Patient needs complete evaluation of anemia including if necessary colonoscopy after resolution of acute episode. Transfuse PRBC. Monitor hemoglobin greater than 8. Avoid NSAID, nephrotoxins. Dose medications as per eGFR Discussed with RN Exam - Exam Vital Signs: Vital Signs Temp Pulse Resp BP BP Pulse Ox 04/17/20 16:03 97.6 F 76 18 156/80 H 93 L 04/17/20 11:36 97.6 F 81 18 168/71 H 91 L 04/17/20 07:27 79 16 94 L 04/17/20 07:23 98.4 F 77 18 150/71 H 92 L 04/17/20 03:32 98.4 F 74 18 163/75 H 93 L 04/16/20 23:28 98.4 F 80 19 176/84 H 94 L 04/16/20 19:29 99.2 F 84 19 135/80 93 L 04/16/20 19:00 74 16 94 L 04/16/20 18:00 98.3 F 92 18 146/79 H 94 L 04/16/20 12:29 98.6 F 85 18 158/79 H 95
--- NOTE | 2020-04-17 17:26 | ULT ---
RENAL ULTRASOUND: 04/17/20 PROVIDED CLINICAL HISTORY: Acute kidney injury. FINDINGS: Right kidney measures about 11.3 x 5.2 x 6.3 cm and demonstrates no evidence for hydronephrosis or ma ss. Left kidney measures about 11.6 x 6 x 5.7 cm and demonstrates no evidence for hydronephrosis or mass. The urinary bladder is decompressed by Curtis catheter and not evaluated. IMPRESSION: No evidence for hydronephrosis. POS: ISSAC
[2020-04-17] MEDS: Metoclopramide HCl 10 MG TAB PO SCH (17:40)
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
[2020-04-17] MEDS: Atorvastatin Calcium 10 MG TAB PO SCH (20:48)
[2020-04-18] MEDS: Metoclopramide HCl 10 MG TAB PO SCH ×5 (00:06→23:12)
[2020-04-18] MEDS: Acetaminophen/Codeine 30-300mg Tablet PO PRN ×3 (00:06→19:30)
[2020-04-18] MEDS: Acetaminophen 500 MG TAB PO SCH ×6 (00:08→22:48)
[2020-04-18] MEDS: traMADol HCl 50 MG TAB PO SCH ×3 (04:21→17:27)
[2020-04-18 05:56] LABS: #Eosinphils 0.3 thou/uL (0.0-0.7); #Lymphocytes 1.2 thou/uL (1.20-3.40); #Monocytes 0.7 thou/uL (0.11-0.59); #Neutrophils 5.9 thou/uL (1.40-6.50); %Basophils 0.1 % (0.0-1.0); %Eosinophils 3.3 % (0.0-10.0); %Lymphocytes 14.4 % (21.0-51.0); %Monocytes 8.8 % (0.0-10.0); %Neutrophils 73.3 % (42.0-75.0); Hemoglobin 9.3 g/dL (14.0-18.0); Mean Corpuscular Hemoglobin 29.7 pg (27.0-31.0); Mean Corpuscular Volume 87.3 fL (78.0-98.0); Platelet Count 422 thou/uL (130-400); RBC Distribution Width 12.6 % (11.5-14.5); Red Blood Cell (RBC) Count 3.12 mill/uL (4.70-6.10); White Blood Cell (WBC) Count 8.1 thou/uL (4.8-10.8)
[2020-04-18] MEDS: Insulin Regular 300 UNITS/3 ML VIAL SC PRN ×4 (06:08→21:23)
[2020-04-18 06:19] LABS: Chloride 97 mmol/L (98-107); Potassium 5.2 mmol/L (3.5-5.1); Sodium 134 mmol/L (136-145)
[2020-04-18 06:39] LABS: Anion Gap 17 mmol/L (10-20); BUN (Urea Nitrogen) 56 mg/dL (8.4-25.7); Calc. Creatinine Clearance 60 mL/min (70-130); Carbon Dioxide 24 mmol/L (22-29); Estimated GFR-MDRD 29; Glucose 194 mg/dL (70-105); Magnesium 2.9 mg/dL (1.6-2.6)
[2020-04-18] MEDS: Tamsulosin HCl 0.4 MG CAP PO SCH (08:54)
[2020-04-18] MEDS: Aspirin Chewable 81 MG TAB PO SCH (08:54)
[2020-04-18] MEDS: Empagliflozin 10 MG TAB PO SCH (08:54)
[2020-04-18] MEDS: Amlodipine 10 MG TAB PO SCH (08:54)
[2020-04-18] MEDS: Famotidine 20 MG TAB PO SCH (08:54)
[2020-04-18] MEDS: Gabapentin 100 MG CAP PO SCH ×2 (08:55→21:09)
[2020-04-18] MEDS: Ondansetron PF 4 MG/2 ML Vial IVP PRN (11:23)
--- NOTE | 2020-04-18 14:24 | PDOC.NEPPN ---
- Subjective Encounter Date: 04/18/20 Subjective: Pt is feeling better. He is not short of breath. - Objective Vital Signs & Weight: Vital Signs (12 hours) Temp Pulse Pulse Resp BP BP BP 04/18/20 12:34 71 16 04/18/20 11:38 97.6 F 72 18 153/80 H 04/18/20 08:54 75 155/82 H 04/18/20 07:46 97.8 F 73 18 04/18/20 07:06 75 16 04/18/20 02:27 98.0 F 71 18 137/78 BP Pulse Ox 04/18/20 12:34 96 04/18/20 11:38 92 L 04/18/20 08:54 04/18/20 07:46 155/82 H 93 L 04/18/20 07:06 95 04/18/20 02:27 95 Weight Weight 270 lb 0.002 oz I&O: 04/17/20 04/18/20 04/19/20 07:59 06:59 06:59 Intake Total Output Total Balance Result Diagrams: 04/18/20 05:42 04/18/20 05:42 Additional Labs: Accuchecks 04/18/20 04/18/20 04/17/20 11:37 06:08 20:53 POC Glucose 211 H 195 H 234 H 04/17/20 16:02 POC Glucose 247 H Nephrology ROS - Review of Systems Other: Review of systems Gen.: No fever, no chills All the 14 systems reviewed except for the ones mentioned above are negative - Medication Medications: Active Medications Generic Name Dose Route Start Last Admin Trade Name Devaughnq PRN Reason Stop Dose Admin Acetaminophen 500 mg 04/16/20 18:00 04/18/20 13:21 Acetaminophen 500 Mg Tab PO Not Given Q6HR ZUNILDA Acetaminophen/Codeine Phosphate 2 tab 04/16/20 14:07 04/18/20 06:04 Acetaminophen/Codeine 30-300mg Tablet PO 2 tab Q6H PRN Administration Severe Pain (7-10) Albuterol/Ipratropium 3 ml 04/16/20 18:30 04/18/20 12:34 Ipratropium/Albuterol Sulfate 3 Ml Neb NEB 3 ml TID-RT ZUNILDA Administration Amlodipine Besylate 10 mg 04/18/20 09:00 04/18/20 08:54 Amlodipine 10 Mg Tab PO 10 mg DAILY ZUNILDA Administration Aspirin 81 mg 04/18/20 09:00 04/18/20 08:54 Aspirin Chewable 81 Mg Tab PO 81 mg DAILY ZUNILDA Administration Atorvastatin Calcium 10 mg 04/17/20 21:00 04/17/20 20:48 Atorvastatin Calcium 10 Mg Tab PO 10 mg HS ZUNILDA Administration Famotidine 20 mg 04/17/20 09:00 04/18/20 08:54 Famotidine 20 Mg Tab PO 20 mg DAILY ZUNILDA Administration Gabapentin 100 mg 04/16/20 21:00 04/18/20 08:55 Gabapentin 100 Mg Cap PO Not Given BID ZUNILDA Insulin Human Regular 0 units 04/16/20 14:07 04/18/20 11:56 Insulin Regular 300 Units/3 Ml Vial SC 3 unit .MILD SLIDING SCALE PRN Administration Mild Correctional Scale Insulin Human Regular 0 units 04/16/20 14:07 04/17/20 20:54 Insulin Regular 300 Units/3 Ml Vial SC 2 unit .BEDTIME SLIDING SC PRN Administration Bedtime Correctional Scale Lactulose 20 gm 04/18/20 09:00 04/18/20 08:54 Lactulose 20 Gm/30 Ml Udcup PO 20 gm DAILY ZUNILDA Administration Levofloxacin 750 mg 04/17/20 06:00 04/18/20 06:14 Levofloxacin 750 Mg Tab PO 750 mg 0600 ZUNILDA Administration Metoclopramide HCl 5 mg 04/17/20 18:00 04/18/20 11:31 Metoclopramide Hcl 10 Mg Tab PO 5 mg Q6HR ZUNILDA Administration Metoprolol Succinate 50 mg 04/17/20 21:00 04/18/20 08:54 Metoprolol Succinate Xl 50 Mg Tab PO 50 mg BID ZUNILDA Administration Miscellaneous Medication 10 mg 04/18/20 09:00 04/18/20 08:54 Empagliflozin 10 Mg Tab PO 10 mg DAILY ZUNILDA Administration Ondansetron HCl 4 mg 04/16/20 14:07 04/18/20 11:23 Ondansetron Pf 4 Mg/2 Ml Vial IVP 4 mg Q6H PRN Administration Nausea Tamsulosin HCl 0.4 mg 04/18/20 09:00 04/18/20 08:54 Tamsulosin Hcl 0.4 Mg Cap PO 0.4 mg DAILY ZUNILDA Administration Tramadol HCl 100 mg 04/17/20 20:00 04/18/20 13:18 Tramadol Hcl 50 Mg Tab PO 100 mg Q8H ZUNILDA Administration - Exam General Appearance: NAD General - other findings: Patient is comfortable, not in pain. Eye: PERRL ENT: normocephalic atraumatic Neck: supple, no lymphadenopathy Respiratory - other findings: Air entry equal bilateral, coarse breath sounds, few crackles Cardiovascular: RRR, no murmur, no gallops Gastrointestinal: soft, non-tender, non-distended, normal bowel sounds Extremities - other findings: Left lower extremity in brace, right lower extremity 1+ pitting edema Neurological: CN's grossly intact Neurological - other findings: Left lower extremity in brace, right lower extremity 1+ pitting edema PSYCH: normal affect, normal behavior, A&O x 3 Nephrology Results - Labs Result Diagrams: 04/18/20 05:42 04/18/20 05:42 Lab results: WBC 8.1 thou/uL (4.8-10.8) 04/18/20 05:42 Hgb 9.3 g/dL (14.0-18.0) L 04/18/20 05:42 Hct 27.3 % (42.0-52.0) L 04/18/20 05:42 MCV 87.3 fL (78.0-98.0) 04/18/20 05:42 Plt Count 422 thou/uL (130-400) H 04/18/20 05:42 Neutrophils % 73.3 % (42.0-75.0) 04/18/20 05:42 ABG pH 7.38 (7.35-7.45) 04/16/20 11:10 ABG pCO2 42.3 mmHg (35.0-45.0) 04/16/20 11:10 ABG pO2 59.7 mmHg (80.0-100.0) L* 04/16/20 11:10 Sodium 134 mmol/L (136-145) L 04/18/20 05:42 Potassium 5.2 mmol/L (3.5-5.1) H 04/18/20 05:42 Chloride 97 mmol/L (98-107) L 04/18/20 05:42 Carbon Dioxide 24 mmol/L (22-29) 04/18/20 05:42 BUN 56 mg/dL (8.4-25.7) H 04/18/20 05:42 Creatinine 2.31 mg/dL (0.7-1.3) H 04/18/20 05:42 Glucose 194 mg/dL (70-105) H 04/18/20 05:42 Lactic Acid 1.0 mmol/L (0.5-2.2) 04/16/20 08:33 Calcium 9.0 mg/dL (7.8-10.44) 04/18/20 05:42 Total Bilirubin 0.4 mg/dL (0.2-1.2) 04/16/20 08:33 AST 14 U/L (5-34) 04/16/20 08:33 ALT 18 U/L (8-55) 04/16/20 08:33 Alkaline Phosphatase 61 U/L (40-110) 04/16/20 08:33 Troponin I 0.014 ng/mL (< 0.028) 04/16/20 08:33 B-Natriuretic Peptide 188.2 pg/mL (0-100) H 04/16/20 08:33 Serum Total Protein 7.0 g/dL (6.0-8.3) 04/16/20 08:33 Albumin 3.3 g/dL (3.5-5.0) L 04/16/20 08:33 Lipase 34 U/L (8-78) 04/16/20 08:33 Urine Ketones Negative mg/dL (Negative) 04/16/20 09:25 Urine Blood 3+ (Negative) A 04/16/20 09:25 Urine Nitrite Negative (Negative) 04/16/20 09:25 Ur Leukocyte Esterase 500 Belkis/uL (Negative) A 04/16/20 09:25 Urine RBC 21-50 HPF (0-3) A 04/16/20 09:25 Urine WBC Greater than 50 HPF (0-3) A 04/16/20 09:25 Ur Squamous Epith Cells 0-3 HPF (0-3) 04/16/20 09:25 Urine Bacteria 1+ HPF (None Seen) A 04/16/20 09:25 Sodium 134 mmol/L (136-145) L 04/18/20 05:42 Potassium 5.2 mmol/L (3.5-5.1) H 04/18/20 05:42 Chloride 97 mmol/L (98-107) L 04/18/20 05:42 Carbon Dioxide 24 mmol/L (22-29) 04/18/20 05:42 Anion Gap 17 mmol/L (10-20) 04/18/20 05:42 BUN 56 mg/dL (8.4-25.7) H 04/18/20 05:42 Creatinine 2.31 mg/dL (0.7-1.3) H 04/18/20 05:42 Glucose 194 mg/dL (70-105) H 04/18/20 05:42 Calcium 9.0 mg/dL (7.8-10.44) 04/18/20 05:42 Phosphorus 5.0 mg/dL (2.3-4.7) H 04/18/20 05:42 Magnesium 2.9 mg/dL (1.6-2.6) H 04/18/20 05:42 Albumin 3.3 g/dL (3.5-5.0) L 04/16/20 08:33 Nephrology AP PN - Plan Acute on chronic kidney disease stage IV Hyponatremia Hyperkalemia Anemia Diabetes mellitus Hypertension Sepsis secondary to pneumonia and UTI Pts renal function is improving, adequate urine out put -2775 ml in last 24 hrs. Sodium is level is stable. Change diet to low potassium diet. Pt is on levaquin, dose medications as per eGFR Discussed with RN
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
[2020-04-18] MEDS: traZODone HCl 50 MG TAB PO PRN (21:08)
[2020-04-18] MEDS: Heparin 5,000 UNITS/ML VIAL SC SCH (21:10)
[2020-04-18] MEDS: Atorvastatin Calcium 10 MG TAB PO SCH (21:10)
[2020-04-18] MEDS: Cyclobenzaprine 10 MG TAB PO PRN (23:17)
[2020-04-19] MEDS ORDERED: guaiFENesin ER 600 MG TAB PO SCH (00:45)
[2020-04-19] MEDS: traMADol HCl 50 MG TAB PO SCH ×3 (03:11→20:44)
[2020-04-19 05:41] LABS: Anion Gap 17 mmol/L (10-20); BUN (Urea Nitrogen) 55 mg/dL (8.4-25.7); Calc. Creatinine Clearance 60 mL/min (70-130); Calcium 9.3 mg/dL (7.8-10.44); Carbon Dioxide 26 mmol/L (22-29); Chloride 94 mmol/L (98-107); Estimated GFR-MDRD 29; Glucose 174 mg/dL (70-105); Magnesium 2.9 mg/dL (1.6-2.6); Phosphorus 4.9 mg/dL (2.3-4.7); Potassium 4.9 mmol/L (3.5-5.1); Sodium 132 mmol/L (136-145)
[2020-04-19] MEDS: Acetaminophen 500 MG TAB PO SCH ×4 (06:25→23:52)
[2020-04-19] MEDS: Metoclopramide HCl 10 MG TAB PO SCH ×4 (06:29→23:51)
[2020-04-19] MEDS: Acetaminophen/Codeine 30-300mg Tablet PO PRN ×3 (06:30→23:52)
[2020-04-19] MEDS: Insulin Regular 300 UNITS/3 ML VIAL SC PRN ×2 (06:35→12:17)
[2020-04-19] MEDS: Gabapentin 100 MG CAP PO SCH ×2 (08:59→20:45)
--- NOTE | 2020-04-19 09:00 | RAD ---
CHEST 1 VIEW PORTABLE: Date: 04/19/2020 HISTORY: Follow-up dyspnea and difficulty breathing. COMPARISON: 04/17/2020. FINDINGS: Progressive pleural and parenchymal opacity changes in the bases with possibilities including that of some progressive bibasilar atelectasis and/or pneumonia/pneumonitis and pleural effusions. The upper lung zones are stable. Cardiac size is stable. IMPRESSION: Some progressive bibasilar pleural and parenchymal opacity changes. Continue short-term follow-up. POS: RRE
[2020-04-19] MEDS: Amlodipine 10 MG TAB PO SCH (09:01)
[2020-04-19] MEDS: guaiFENesin ER 600 MG TAB PO SCH ×2 (09:01→20:45)
[2020-04-19] MEDS: Aspirin Chewable 81 MG TAB PO SCH (09:01)
[2020-04-19] MEDS: Famotidine 20 MG TAB PO SCH (09:01)
[2020-04-19] MEDS: Tamsulosin HCl 0.4 MG CAP PO SCH (09:01)
[2020-04-19] MEDS: Heparin 5,000 UNITS/ML VIAL SC SCH ×3 (09:01→20:45)
[2020-04-19] MEDS: Empagliflozin 10 MG TAB PO SCH (09:01)
[2020-04-19] MEDS: Cyclobenzaprine 10 MG TAB PO PRN ×2 (09:14→20:45)
[2020-04-19] MEDS: Atorvastatin Calcium 10 MG TAB PO SCH (20:44)
[2020-04-20] MEDS: Ondansetron PF 4 MG/2 ML Vial IVP PRN
[2020-04-20] MEDS: traMADol HCl 50 MG TAB PO SCH ×3 (04:59→20:07)
[2020-04-20] MEDS: Metoclopramide HCl 10 MG TAB PO SCH ×4 (05:00→23:30)
[2020-04-20] MEDS: Acetaminophen 500 MG TAB PO SCH ×4 (05:02→23:29)
[2020-04-20] MEDS: Acetaminophen/Codeine 30-300mg Tablet PO PRN (06:17)
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
[2020-04-20] MEDS: Famotidine 20 MG TAB PO SCH (09:09)
[2020-04-20] MEDS: Tamsulosin HCl 0.4 MG CAP PO SCH (09:09)
[2020-04-20] MEDS: Empagliflozin 10 MG TAB PO SCH (09:10)
[2020-04-20] MEDS: Aspirin Chewable 81 MG TAB PO SCH (09:11)
[2020-04-20] MEDS: guaiFENesin ER 600 MG TAB PO SCH ×2 (09:11→20:07)
[2020-04-20] MEDS: Heparin 5,000 UNITS/ML VIAL SC SCH ×3 (09:12→20:06)
[2020-04-20] MEDS: Amlodipine 10 MG TAB PO SCH (09:12)
[2020-04-20] MEDS: Gabapentin 100 MG CAP PO SCH (09:12)
--- NOTE | 2020-04-20 11:49 | PRG ---
DATE OF SERVICE: 04/20/2020 SUBJECTIVE: A 59-year-old gentleman being seen for acute kidney injury. The patient denies nausea, vomiting, or chest pain. OBJECTIVE: GENERAL: The patient is awake, alert. VITAL SIGNS: Afebrile. Pulse 75, breathing 16, blood pressure 134/74. HEENT: Head normocephalic and atraumatic. Eyes intact, no ulcers. Nose intact, no ulcers. Ears intact, no ulcers. NECK: Supple. No JVD. CHEST: Symmetrical and clear. CARDIOVASCULAR: Shows S1 and S2, no rub, no murmur. GASTROINTESTINAL: Abdomen is soft, bowel sounds positive. EXTREMITIES: Show no edema or ulcers. SKIN: Shows no rash or petechiae. MUSCULOSKELETAL: Shows no joint swelling or stiffness. GENITOURINARY: Shows no Curtis or CVA tenderness. NEUROLOGIC: Motor intact. Cranial nerves intact. LABORATORY DATA: Reviewed and showed hemoglobin 9.3. ASSESSMENT AND PLAN: 1. Stage 4 chronic kidney disease, improved. 2. Acute kidney injury, stable. 3. Hypertension, stable. 4. Anemia, stable. 5. Medication based on GFR appropriate. Job ID: [id number]
[2020-04-20 13:24] LABS: Anion Gap 19 mmol/L (10-20); BUN (Urea Nitrogen) 49 mg/dL (8.4-25.7); Calc. Creatinine Clearance 57 mL/min (70-130); Calcium 9.6 mg/dL (7.8-10.44); Carbon Dioxide 23 mmol/L (22-29); Chloride 97 mmol/L (98-107); Estimated GFR-MDRD 28; Glucose 131 mg/dL (70-105); Potassium 5.4 mmol/L (3.5-5.1); Sodium 134 mmol/L (136-145)
--- NOTE | 2020-04-20 14:01 | PRG ---
DATE OF SERVICE: 04/20/2020 SUBJECTIVE: A 59-year-old gentleman being seen for acute kidney injury. The patient denied nausea, vomiting, or chest pain. OBJECTIVE: GENERAL: The patient is awake, alert. VITAL SIGNS: Pulse 60, breathing 16, blood pressure 134/74. HEENT: Head normocephalic and atraumatic. Eyes intact, no ulcers. Nose intact, no ulcers. Ears intact, no ulcers. NECK: Supple. No JVD. CHEST: Symmetrical and clear. CARDIOVASCULAR: Shows S1 and S2, no rub, no murmur. GASTROINTESTINAL: Abdomen is soft, bowel sounds positive. EXTREMITIES: Show no edema or ulcers. SKIN: Shows no rash or petechiae. MUSCULOSKELETAL: Shows no joint swelling or stiffness. GENITOURINARY: Shows no Curtis or CVA tenderness. NEUROLOGIC: Motor intact. Cranial nerves intact. LABORATORY DATA: Labs showed hemoglobin 9.3, creatinine is 2.4, potassium is 5.4. ASSESSMENT AND PLAN: 1. Acute kidney injury with chronic kidney disease, stable. 2. Hyperkalemia. Recommend low-potassium diet and rechecking potassium again. I would recommend stopping the potassium supplement. Recommend changing Lovenox and repeating potassium again. Job ID: [id number]
[2020-04-20] MEDS: Atorvastatin Calcium 10 MG TAB PO SCH (20:07)
[2020-04-20] MEDS: Cyclobenzaprine 10 MG TAB PO PRN (23:32)
[2020-04-20] MEDS ORDERED: PROVENTIL INHALER 6.7 G (200 INHALATIONS) INH PRN (23:52)
[2020-04-21] MEDS: PROVENTIL INHALER 6.7 G (200 INHALATIONS) INH SCH ×4 (02:15→16:46)
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
[2020-04-21] MEDS: traMADol HCl 50 MG TAB PO SCH ×3 (03:53→20:18)
[2020-04-21] MEDS: Acetaminophen/Codeine 30-300mg Tablet PO PRN (03:54)
[2020-04-21] MEDS: Acetaminophen 500 MG TAB PO SCH ×4 (05:10→23:25)
[2020-04-21] MEDS: Metoclopramide HCl 10 MG TAB PO SCH ×4 (05:10→23:25)
[2020-04-21 06:12] LABS: Phosphorus 4.9 mg/dL (2.3-4.7)
[2020-04-21 06:13] LABS: Anion Gap 16 mmol/L (10-20); BUN (Urea Nitrogen) 46 mg/dL (8.4-25.7); Calc. Creatinine Clearance 63 mL/min (70-130); Calcium 9.1 mg/dL (7.8-10.44); Carbon Dioxide 24 mmol/L (22-29); Chloride 100 mmol/L (98-107); Estimated GFR-MDRD 30; Glucose 130 mg/dL (70-105); Magnesium 2.7 mg/dL (1.6-2.6); Potassium 4.8 mmol/L (3.5-5.1); Sodium 135 mmol/L (136-145)
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
[2020-04-21] MEDS: Tamsulosin HCl 0.4 MG CAP PO SCH (09:10)
[2020-04-21] MEDS: Aspirin Chewable 81 MG TAB PO SCH (09:10)
[2020-04-21] MEDS: Amlodipine 10 MG TAB PO SCH (09:10)
[2020-04-21] MEDS: guaiFENesin ER 600 MG TAB PO SCH ×2 (09:10→20:17)
[2020-04-21] MEDS: Heparin 5,000 UNITS/ML VIAL SC SCH ×3 (09:11→20:17)
[2020-04-21] MEDS: Empagliflozin 10 MG TAB PO SCH (09:11)
[2020-04-21] MEDS ORDERED: Saccharomyces boulardii 250 MG CAP PO SCH (10:00)
[2020-04-21] MEDS: Ondansetron PF 4 MG/2 ML Vial IVP PRN (12:10)
--- NOTE | 2020-04-21 12:14 | PRG ---
DATE OF SERVICE: 04/21/2020 SUBJECTIVE: A 59-year-old gentleman being seen for acute kidney injury. The patient denies nausea, vomiting, or chest pain. OBJECTIVE: GENERAL: The patient is awake and alert. VITAL SIGNS: Afebrile, pulse 71, breathing at 16, blood pressure 161/70. HEENT: Head normocephalic and atraumatic. Eyes intact, no ulcers. Nose intact, no ulcers. Ears intact, no ulcers. NECK: Supple. No JVD. CHEST: Symmetrical and clear. CARDIOVASCULAR: Shows S1 and S2, no rub, no murmur. GASTROINTESTINAL: Abdomen is soft, bowel sounds positive. EXTREMITIES: Show no edema or ulcers. SKIN: Shows no rash or petechiae. MUSCULOSKELETAL: Shows no joint swelling or stiffness. GENITOURINARY: Shows no Curtis or CVA tenderness. NEUROLOGIC: Motor intact. Cranial nerves intact. LABORATORY DATA: Shows hemoglobin 9.3, creatinine 2.2. ASSESSMENT AND PLAN: 1. Acute kidney injury, improved. 2. Hypertension, stable. 3. Anemia, stable. 4. Medications based on GFR, appropriate. 5. Hyperkalemia, improved. No indication for dialysis. I will sign off. Please reconsult as needed. Job ID: [id number]
[2020-04-21] MEDS: Insulin Regular 300 UNITS/3 ML VIAL SC PRN (13:10)
[2020-04-21] MEDS: Atorvastatin Calcium 10 MG TAB PO SCH (20:17)
[2020-04-21] MEDS: traZODone HCl 50 MG TAB PO PRN (20:17)
[2020-04-21] MEDS: Cyclobenzaprine 10 MG TAB PO PRN (20:18)
[2020-04-21] MEDS: Saccharomyces boulardii 250 MG CAP PO SCH (20:18)
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
[2020-04-22] MEDS: PROVENTIL INHALER 6.7 G (200 INHALATIONS) INH SCH ×3 (03:29→13:20)
[2020-04-22] MEDS: Metoclopramide HCl 10 MG TAB PO SCH ×2 (05:40→12:10)
[2020-04-22] MEDS: Cyclobenzaprine 10 MG TAB PO PRN (05:40)
[2020-04-22] MEDS: Acetaminophen 500 MG TAB PO SCH ×2 (05:41→12:09)
[2020-04-22] MEDS: traMADol HCl 50 MG TAB PO SCH ×2 (05:41→12:11)
[2020-04-22] MEDS: guaiFENesin ER 600 MG TAB PO SCH (09:23)
[2020-04-22] MEDS: Amlodipine 10 MG TAB PO SCH (09:23)
[2020-04-22] MEDS: Aspirin Chewable 81 MG TAB PO SCH (09:23)
[2020-04-22] MEDS: Tamsulosin HCl 0.4 MG CAP PO SCH (09:24)
[2020-04-22] MEDS: Heparin 5,000 UNITS/ML VIAL SC SCH (09:24)
[2020-04-22] MEDS: Empagliflozin 10 MG TAB PO SCH (09:24)
[2020-04-22] MEDS: Saccharomyces boulardii 250 MG CAP PO SCH (09:25)
[2020-04-22 11:52] VITALS: BP 178/68; TEMP 98.3
--- NOTE | 2020-04-22 12:10 | PRG ---
DATE OF SERVICE: 04/22/2020 SUBJECTIVE: A 59-year-old gentleman being seen for acute kidney injury. The patient denies any nausea, vomiting, or chest pain. OBJECTIVE: GENERAL: The patient is awake, alert. VITAL SIGNS: Pulse 75, breathing 16, and blood pressure 130/70. HEENT: Head normocephalic and atraumatic. Eyes intact, no ulcers. Nose intact, no ulcers. Ears intact, no ulcers. NECK: Supple. No JVD. CHEST: Symmetrical and clear. CARDIOVASCULAR: Shows S1 and S2, no rub, no murmur. GASTROINTESTINAL: Abdomen is soft, bowel sounds positive. EXTREMITIES: Show no edema or ulcers. SKIN: Shows no rash or petechiae. MUSCULOSKELETAL: Shows no joint swelling or stiffness. GENITOURINARY: Shows no Curtis or CVA tenderness. NEUROLOGIC: Motor intact. Cranial nerves intact. LABORATORY DATA: Hemoglobin 9.3. ASSESSMENT: 1. Stage 4 chronic kidney disease, stable. 2. Acute kidney injury, improved. 3. Hypertension, stable. 4. Anemia, stable. 5. Medication based on GFR appropriate. 6. The patient will follow up with Dr. Villavicencio in few weeks. Job ID: [id number]
[2020-04-22] MEDS: Insulin Regular 300 UNITS/3 ML VIAL SC PRN (12:12)
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
--- NOTE | 2020-04-24 16:39 | EKG ---
Test Reason : Blood Pressure : / mmHG Vent. Rate : 093 BPM Atrial Rate : 093 BPM P-R Int : 166 ms QRS Dur : 082 ms QT Int : 350 ms P-R-T Axes : 046 -20 099 degrees QTc Int : 435 ms Normal sinus rhythm Minimal voltage criteria for LVH, may be normal variant Abnormal QRS-T angle, consider primary T wave abnormality Abnormal ECG Confirmed by STEPHON MUNOZ, MARK ([id number]), editor producer KEYUR CHRISTIANSON ([id number]) on 04/24/2020 4:39:43 PM Referred By: Confirmed By:MARK SZYMANSKI MD
== END 2020-04-22 16:00 | DRG 871 ==
LOC: ERS 07:41 → SURG B 09:46 → OBSVTOIN 04-19 14:42
PROVIDERS: ADMIT Surgery; ATTEND Surgery
DX: A41.9 Sepsis, unspecified organism (principal); J18.9 Pneumonia, unspecified organism; E87.1 Hypo-osmolality and hyponatremia; N39.0 Urinary tract infection, site not specified; N18.4 Chronic kidney disease, stage 4 (severe); E11.21 Type 2 diabetes mellitus with diabetic nephropathy; D64.9 Anemia, unspecified; E11.22 Type 2 diabetes mellitus with diabetic chronic kidney disease; I12.9 Hypertensive chronic kidney disease with stage 1 through stage 4 chronic kidney disease, or unspecified chronic kidney disease; D63.8 Anemia in other chronic diseases classified elsewhere; E88.09 Other disorders of plasma-protein metabolism, not elsewhere classified; E87.8 Other disorders of electrolyte and fluid balance, not elsewhere classified; R79.89 Other specified abnormal findings of blood chemistry; E87.5 Hyperkalemia; Z88.0 Allergy status to penicillin; Z88.2 Allergy status to sulfonamides; Z79.899 Other long term (current) drug therapy; Z90.49 Acquired absence of other specified parts of digestive tract
CPT/HCPCS: 36415; 36416; 36430; 70450; 71045; 76770; 80048; 81003; 82805; 83605; 83690; 83735; 83880; 84100; 84484; 85025; 86850; 86900; 86901; 87040; 93005; 93306; 94640; 94664; 96376; G0378; J0456; J0696; J1644; J1815; J1940; J2405; J7620; P9016; U0002

== ENCOUNTER 2025-04-13 18:00 | Inpatient (IN) | payer MEDICARE, OTHER ==
[2025-04-13] MEDS ORDERED: Boostrix 0.5 ML (Tdap) VIAL (>/=7 yrs of age) ONE (19:02)
[2025-04-13 19:34] LABS: #Basophils Less than 0.03 10x3/uL (0.0-0.2); #Eosinophils 0.15 10x3/uL (0.0-0.7); #Monocytes 0.73 10x3/uL (0.11-0.59); #Neutrophils 12.09 10x3/uL (1.40-6.50); %Basophils 0.1 % (0.0-1.0); %Eosinophils 1.1 % (0.0-10.0); %Lymphocytes 6.8 % (21.0-51.0); %Monocytes 5.2 % (0.0-10.0); %Neutrophils 85.9 % (42.0-75.0); Hematocrit 30.7 % (42.0-52.0); Hemoglobin 10.3 g/dL (14.0-18.0); Mean Corpuscular Hemoglobin 29.8 pg (27.0-31.0); Mean Corpuscular Volume 88.7 fL (78.0-98.0); Platelet Count 168 10x3/uL (130-400); Red Blood Cell (RBC) Count 3.46 mill/uL (4.70-6.10); White Blood Cell (WBC) Count 14.07 10x3/uL (4.8-10.8)
[2025-04-13] MEDS ORDERED: HYDROmorphone 0.5 MG/0.5 ML SYRINGE ONE (19:37)
[2025-04-13] MEDS ORDERED: CEFAZOLIN 2 GM VIAL ONE (19:43)
[2025-04-13] MEDS ORDERED: metroNIDAZOLE 500 MG (100 mL) BAG ONE (19:46)
[2025-04-13 19:51] LABS: Acetaminophen Less than 10 mcg/mL (Less than 10); Salicylate Less than 8.0 mg/dL (Less than 8.0)
[2025-04-13 19:53] LABS: ALT (SGPT) 24 U/L (Less than 45); AST (SGOT) 25 U/L (11-34); Albumin 3.3 g/dL (3.1-4.5); Alkaline Phosphatase 50 U/L (40-110); Anion Gap 12 mmol/L (10-20); BUN (Urea Nitrogen) 37 mg/dL (8.4-25.7); Bilirubin, Total 0.4 mg/dL (0.3-1.2); Calc. Creatinine Clearance 0 mL/min (70-130); Calcium 8.6 mg/dL (7.8-10.44); Carbon Dioxide 23 mmol/L (23-31); Chloride 110 mmol/L (98-107); Globulin 3.3 g/dL (2.4-3.5); Glucose 238 mg/dL (80-115); Potassium 3.9 mmol/L (3.5-5.1); Sodium 141 mmol/L (136-145)
[2025-04-13 20:00] LABS: INR-International Normal Ratio 1.1; Prothrombin Time 14.3 sec (12.0-14.7)
[2025-04-13 20:01] LABS: PTT 33.4 sec (22.9-36.1)
[2025-04-13] MEDS ORDERED: Lidocaine 1% (PF) 30 ML VIAL ONE (20:27)
[2025-04-13] MEDS ORDERED: Dextrose 50% Abboject 50 ML SYRINGE SLOW IVP PRN ×2 (20:34→23:55)
[2025-04-13] MEDS ORDERED: Glucagon 1 MG/ML KIT IM PRN ×2 (20:34→23:55)
[2025-04-13] MEDS ORDERED: Ondansetron PF 4 MG/2 ML Vial IVP PRN (20:34)
[2025-04-13] MEDS: Methocarbamol 500 MG TAB PO SCH (22:59)
[2025-04-13 23:23] VITALS: BMI 40.2
[2025-04-14] MEDS: Acetaminophen 325 MG TAB PO SCH (00:03)
[2025-04-14] MEDS: Aspirin 81 mg Enteric Coated Tablet PO SCH (00:28)
[2025-04-14] MEDS: Insulin Glargine 30 UNITS/0.3 ML VIAL SC SCH ×2 (00:28→21:12)
[2025-04-14 04:28] LABS: #Basophils Less than 0.03 10x3/uL (0.0-0.2); #Eosinophils Less than 0.03 10x3/uL (0.0-0.7); #Monocytes 0.21 10x3/uL (0.11-0.59); #Neutrophils 10.11 10x3/uL (1.40-6.50); %Basophils 0.1 % (0.0-1.0); %Eosinophils 0.0 % (0.0-10.0); %Lymphocytes 6.0 % (21.0-51.0); %Monocytes 1.9 % (0.0-10.0); %Neutrophils 91.5 % (42.0-75.0); Hematocrit 29.7 % (42.0-52.0); Hemoglobin 9.9 g/dL (14.0-18.0); Mean Corpuscular Hemoglobin 29.6 pg (27.0-31.0); Mean Corpuscular Volume 88.9 fL (78.0-98.0); Platelet Count 140 10x3/uL (130-400); Red Blood Cell (RBC) Count 3.34 mill/uL (4.70-6.10); White Blood Cell (WBC) Count 11.04 10x3/uL (4.8-10.8)
[2025-04-14 04:53] LABS: Anion Gap 17 mmol/L (10-20); BUN (Urea Nitrogen) 40 mg/dL (8.4-25.7); Calc. Creatinine Clearance 27 mL/min (70-130); Calcium 8.5 mg/dL (7.8-10.44); Carbon Dioxide 18 mmol/L (23-31); Chloride 109 mmol/L (98-107); Glucose 314 mg/dL (80-115); Potassium 4.7 mmol/L (3.5-5.1); Sodium 139 mmol/L (136-145)
[2025-04-14 05:16] LABS: Hep B Core Total Index 0.12 S/CO (0-0.79); Hep C Index 0.18 S/CO (0-0.79)
[2025-04-14 05:54] LABS: HBSAB Concentration 8.94 mIU/mL; Hep B Core Total Ab NONREACTIVE (NonReactive); Hep B Surf Ag NONREACTIVE S/CO (NonReactive); Hep C IgG Ab NONREACTIVE S/CO (NonReactive)
[2025-04-14] MEDS: Mometasone 200 MCG/Formoterol 5 MCG 120 PUFF INHALER INH SCH (06:40)
[2025-04-14] MEDS ORDERED: Clindamycin/D5W 900 MG in Premix 1 BAG IVPB SCH (08:00)
[2025-04-14] MEDS: Cyanocobalamin (Vitamin B-12) 1,000 MCG TAB PO SCH (08:33)
[2025-04-14] MEDS: Pantoprazole 40 MG DR.TAB PO SCH (08:33)
[2025-04-14] MEDS: Thiamine 100 MG TAB PO SCH (08:33)
[2025-04-14] MEDS: Carvedilol 3.125 MG TAB PO SCH (08:34)
[2025-04-14] MEDS: Folic Acid/Vit B Comp W-C PO SCH (08:34)
[2025-04-14] MEDS ORDERED: PROPOFOL 20 ML ONE (13:06)
[2025-04-14] MEDS ORDERED: fentaNYL PF 100 MCG/2 ML SYRINGE ONE (13:06)
[2025-04-14] MEDS ORDERED: Lidocaine 1% PF 5 ML VIAL ONE (13:07)
[2025-04-14] MEDS ORDERED: Ondansetron PF 4 MG/2 ML Vial ONE (14:44)
[2025-04-14] MEDS ORDERED: Rocuronium Bromide 10 MG/ML (10ML VIAL) ONE (14:44)
[2025-04-14] MEDS ORDERED: HYDROmorphone 0.5 MG/0.5 ML SYR SLOW IVP PRN (15:00)
[2025-04-14] MEDS ORDERED: PACU-Morphine 4MG/ML VIAL SLOW IVP PRN (15:00)
[2025-04-14] MEDS ORDERED: HYDROmorphone 0.5 MG/0.5 ML SYRINGE ONE (16:40)
[2025-04-14] MEDS: EPOETIN ALFA-EPBX (ESRD) 10,000 UNITS/ML VIAL SC SCH (17:13)
[2025-04-14] MEDS: Aspirin Chewable 81 MG TAB PO SCH (21:12)
[2025-04-14] MEDS: Carvedilol 25 MG TAB PO SCH (21:12)
[2025-04-14] MEDS: Clindamycin/D5W 900 MG in Premix 1 BAG IVPB SCH (23:41)
[2025-04-15] MEDS: hydrALAZINE 20 MG/ML VIAL SLOW IVP PRN (03:20)
[2025-04-15 04:27] LABS: #Basophils Less than 0.03 10x3/uL (0.0-0.2); #Eosinophils Less than 0.03 10x3/uL (0.0-0.7); #Monocytes 0.72 10x3/uL (0.11-0.59); #Neutrophils 15.28 10x3/uL (1.40-6.50); %Basophils 0.1 % (0.0-1.0); %Eosinophils 0.0 % (0.0-10.0); %Lymphocytes 5.8 % (21.0-51.0); %Monocytes 4.2 % (0.0-10.0); %Neutrophils 89.3 % (42.0-75.0); Hematocrit 29.6 % (42.0-52.0); Hemoglobin 9.8 g/dL (14.0-18.0); Mean Corpuscular Hemoglobin 29.6 pg (27.0-31.0); Mean Corpuscular Volume 89.4 fL (78.0-98.0); Platelet Count 173 10x3/uL (130-400); Red Blood Cell (RBC) Count 3.31 mill/uL (4.70-6.10); White Blood Cell (WBC) Count 17.11 10x3/uL (4.8-10.8)
[2025-04-15 04:48] LABS: Anion Gap 18 mmol/L (10-20); BUN (Urea Nitrogen) 46 mg/dL (8.4-25.7); Calc. Creatinine Clearance 26 mL/min (70-130); Calcium 8.7 mg/dL (7.8-10.44); Carbon Dioxide 19 mmol/L (23-31); Chloride 102 mmol/L (98-107); Glucose 444 mg/dL (80-115); Potassium 4.2 mmol/L (3.5-5.1); Sodium 135 mmol/L (136-145)
[2025-04-15] MEDS: Transdermal Patch Removal TOP SCH (06:34)
[2025-04-15] MEDS: Insulin Glargine 30 UNITS/0.3 ML VIAL SC SCH (08:37)
[2025-04-15] MEDS: Furosemide 40 MG TAB PO SCH (08:40)
[2025-04-15] MEDS: Calcitriol 0.25 MCG CAP PO SCH (08:40)
[2025-04-15] MEDS: Carvedilol 6.25 MG TAB PO SCH (08:40)
[2025-04-15] MEDS: Heparin 5,000 UNITS/ML VIAL SC SCH (14:36)
[2025-04-15] MEDS ORDERED: Non-Formulary Item 1 EACH (Insulin Glargine,Hum.Rec.Anlog [Toujeo Solostar] 300 UNIT/ML I SQ SCH (21:00)
[2025-04-16 06:15] LABS: #Basophils Less than 0.03 10x3/uL (0.0-0.2); #Eosinophils 0.06 10x3/uL (0.0-0.7); #Monocytes 0.89 10x3/uL (0.11-0.59); #Neutrophils 7.19 10x3/uL (1.40-6.50); %Basophils 0.1 % (0.0-1.0); %Eosinophils 0.6 % (0.0-10.0); %Lymphocytes 14.0 % (21.0-51.0); %Monocytes 9.3 % (0.0-10.0); %Neutrophils 74.9 % (42.0-75.0); Hematocrit 27.1 % (42.0-52.0); Hemoglobin 8.9 g/dL (14.0-18.0); Mean Corpuscular Hemoglobin 30.0 pg (27.0-31.0); Mean Corpuscular Volume 91.2 fL (78.0-98.0); Platelet Count 153 10x3/uL (130-400); Red Blood Cell (RBC) Count 2.97 mill/uL (4.70-6.10); White Blood Cell (WBC) Count 9.61 10x3/uL (4.8-10.8)
[2025-04-16 06:21] LABS: Anion Gap 19 mmol/L (10-20); BUN (Urea Nitrogen) 48 mg/dL (8.4-25.7); Calc. Creatinine Clearance 25 mL/min (70-130); Calcium 8.6 mg/dL (7.8-10.44); Carbon Dioxide 20 mmol/L (23-31); Chloride 100 mmol/L (98-107); Glucose 278 mg/dL (80-115); Potassium 3.8 mmol/L (3.5-5.1); Sodium 135 mmol/L (136-145)
[2025-04-16] MEDS: Insulin Glargine 30 UNITS/0.3 ML VIAL SC SCH (09:20)
[2025-04-16 12:14] VITALS: TEMP 98.4
[2025-04-16] MEDS: EPOETIN ALFA-EPBX (ESRD) 10,000 UNITS/ML VIAL SC SCH (15:22)
[2025-04-16] MEDS: HYDROcodone/Acetaminophen 5/325 mg Tablet PO PRN (17:45)
[2025-04-16 17:47] VITALS: BP 175/77
== END 2025-04-16 20:38 | disposition home or self-care (01) | DRG 510 ==
LOC: ERS 18:00 → 2SE 20:38
PROVIDERS: ADMIT Surgery; ATTEND Surgery
PROC: 0PSH04Z Reposition Right Radius with Internal Fixation Device, Open Approach (ICD-10-PCS; principal; 2025-04-14)
PROC: 3E03329 Introduction of Other Anti-infective into Peripheral Vein, Percutaneous Approach (ICD-10-PCS; 2025-04-14)
DX: S52.571A Other intraarticular fracture of lower end of right radius, initial encounter for closed fracture (principal); N18.6 End stage renal disease; S22.41XA Multiple fractures of ribs, right side, initial encounter for closed fracture; S32.039A Unspecified fracture of third lumbar vertebra, initial encounter for closed fracture; N25.81 Secondary hyperparathyroidism of renal origin; S52.601A Unspecified fracture of lower end of right ulna, initial encounter for closed fracture; Z79.899 Other long term (current) drug therapy; N18.9 Chronic kidney disease, unspecified; Z88.0 Allergy status to penicillin; Z88.2 Allergy status to sulfonamides; Z88.8 Allergy status to other drugs, medicaments and biological substances; E11.9 Type 2 diabetes mellitus without complications; I10 Essential (primary) hypertension; I12.9 Hypertensive chronic kidney disease with stage 1 through stage 4 chronic kidney disease, or unspecified chronic kidney disease; Z98.890 Other specified postprocedural states; V89.2XXA Person injured in unspecified motor-vehicle accident, traffic, initial encounter; S30.13XA Contusion of flank (latus) region, initial encounter; E78.5 Hyperlipidemia, unspecified; D72.829 Elevated white blood cell count, unspecified; D63.8 Anemia in other chronic diseases classified elsewhere; R91.1 Solitary pulmonary nodule; J44.9 Chronic obstructive pulmonary disease, unspecified; E83.39 Other disorders of phosphorus metabolism
CPT/HCPCS: 36415; 36416; 70450; 70486; 71045; 71250; 72125; 74177; 80048; 80053; 80307; 82550; 83970; 84100; 84484; 85025; 85610; 85730; 86704; 86706; 86803; 87340; 90471; 90715; 90945; 93005; 93010; 93306; 96365; 96375; C1713; G0257; G0390; J0169; J0360; J0665; J1100; J1171; J1644; J1815; J2003; J2270; J2405; J2704; J2919; J3490; J7030; Q5105

== ENCOUNTER 2025-04-20 03:37 | Inpatient (IN) | payer MEDICARE, OTHER ==
[2025-04-20 04:16] LABS: Actual Bicarbonate (HCO3v) 20.6 mEq/L (22-28); Base Excess -4.6 mEq/L (-2.0 to +3.0); Calcium, Ionized (venous) 1.10 mmol/L (1.16-1.32); Chloride (VBG) 102 mmol/L (98-106); Hematocrit-VBG 36 % (42.0-52.0); Hemoglobin (Hb) 12.1 g/dL (13.1-17.2); Potassium (VBG) 3.90 mmol/L (3.70-5.30); Sodium 135 mmol/L (133-146)
[2025-04-20 04:23] LABS: #Basophils Less than 0.03 10x3/uL (0.0-0.2); %Eosinophils 0.2 % (0.0-10.0)
[2025-04-20 04:43] LABS: ALT (SGPT) 13 U/L (Less than 45); AST (SGOT) 16 U/L (11-34); Albumin 2.8 g/dL (3.1-4.5); Alkaline Phosphatase 43 U/L (40-110); Anion Gap 20 mmol/L (10-20); BUN (Urea Nitrogen) 60 mg/dL (8.4-25.7); Bilirubin, Total 0.6 mg/dL (0.3-1.2); Calc. Creatinine Clearance 0 mL/min (70-130); Calcium 9.1 mg/dL (7.8-10.44); Carbon Dioxide 20 mmol/L (23-31); Chloride 102 mmol/L (98-107); Globulin 4.0 g/dL (2.4-3.5); Glucose 172 mg/dL (80-115); Lipase 62 U/L (8-78); Magnesium 2.2 mg/dL (1.6-2.6); Potassium 4.0 mmol/L (3.5-5.1); Sodium 138 mmol/L (136-145)
[2025-04-20 05:36] LABS: #Eosinophils 0.03 10x3/uL (0.0-0.7); #Monocytes 1.10 10x3/uL (0.11-0.59); #Neutrophils 10.12 10x3/uL (1.40-6.50); %Basophils 0.1 % (0.0-1.0); %Lymphocytes 6.9 % (21.0-51.0); %Monocytes 9.1 % (0.0-10.0); %Neutrophils 83.3 % (42.0-75.0); Hematocrit 25.5 % (42.0-52.0); Hemoglobin 8.7 g/dL (14.0-18.0); Mean Corpuscular Hemoglobin 30.0 pg (27.0-31.0); Mean Corpuscular Volume 87.9 fL (78.0-98.0); Platelet Count 194 10x3/uL (130-400); Red Blood Cell (RBC) Count 2.90 mill/uL (4.70-6.10); White Blood Cell (WBC) Count 12.15 10x3/uL (4.8-10.8)
[2025-04-20] MEDS ORDERED: LevoFLOXacin 750 mg/D5W 150 ml Premix Bag ONE (06:47)
[2025-04-20] MEDS ORDERED: Furosemide 40 MG (4 mL) VIAL ONE (07:55)
[2025-04-20] MEDS ORDERED: Communication Order-Pharmacy FS PRN (08:10)
[2025-04-20] MEDS ORDERED: Vancomycin 1 GM in Sodium Chloride 0.9% 500 ML IVPB SCH (08:15)
[2025-04-20] MEDS ORDERED: Dextrose 50% Abboject 50 ML SYRINGE SLOW IVP PRN (08:18)
[2025-04-20] MEDS ORDERED: Glucagon 1 MG/ML KIT IM PRN (08:18)
[2025-04-20] MEDS: PROPOFOL 200 MG/20 ML VIAL IV SCH (09:20)
[2025-04-20 10:32] LABS: Actual Bicarbonate (HCO3a) 20.3 mEq/L (22-28); Base Excess (BEa) -3.4 mEq/L (-2.0 to +3.0); CO2 Tension 31.5 mmHg (35.0-45.0); Calcium, Ionized (arterial) 1.06 mmol/L (1.12-1.30); Hematocrit-ABG 25 % (42.0-52.0); Hemoglobin (Hb) 8.4 g/dL (14.0-18.0); O2 Tension (PaO2), arterial 69.0 mmHg (> 80.0); Potassium - ABG Lab 4.18 mmol/L (3.70-5.30); pH, Arterial 7.428 (7.35-7.45)
[2025-04-20 10:34] LABS: ALV-art Gradient 604.625 mmHg (0-20); Puncture Site Right Brachial art
[2025-04-20 10:35] LABS: Albumin 2.4 g/dL (3.1-4.5); Anion Gap 18 mmol/L (10-20); BUN (Urea Nitrogen) 67 mg/dL (8.4-25.7); BUN/Creatinine Ratio 14.02; Calc. Creatinine Clearance 25 mL/min (70-130); Calcium 8.4 mg/dL (7.8-10.44); Carbon Dioxide 19 mmol/L (23-31); Chloride 104 mmol/L (98-107); Glucose 206 mg/dL (80-115); Potassium 4.5 mmol/L (3.5-5.1); Sodium 136 mmol/L (136-145)
[2025-04-20] MEDS ORDERED: Vancomycin Dose by Levels Sliding Scale (Wt > 99) FS SCH (11:15)
[2025-04-20] MEDS: Pantoprazole 40 MG VIAL IVP SCH ×2 (12:00→12:01)
[2025-04-20] MEDS: Heparin 5,000 UNITS/ML VIAL SC SCH (12:00)
[2025-04-20] MEDS: Norepinephrine 8 MG/0.9% NS 0 ML ONE (12:02)
[2025-04-20] MEDS: Vancomycin (BATCH) 2.5 GM in Premix 1 BAG IVPB SCH (12:23)
[2025-04-20] MEDS: Vancomycin 1 GM in Sodium Chloride 0.9% 250 ML 300 ML IVPB SCH (12:38)
[2025-04-20] MEDS ORDERED: Propofol BOLUS 1,000 MG/100 ML VIAL IV PRN (12:45)
[2025-04-20] MEDS ORDERED: Fentanyl BOLUS 100 ML IVPB PRN (12:45)
[2025-04-20] MEDS: Carvedilol 25 MG TAB PO SCH (15:40)
[2025-04-20] MEDS: EPOETIN ALFA-EPBX (ESRD) 10,000 UNITS/ML VIAL SC SCH (15:41)
[2025-04-20] MEDS: PNEUMOC 20-VAL CONJ-DIP CRM/PF 0.5 ML SYRINGE IM ONE (18:46)
[2025-04-20] MEDS: FLU (Fluarix Triv) 25-26 (6MOS UP)/PF 45 MCG/0.5 ML Syringe IM ONE (18:46)
[2025-04-20] MEDS: Mupirocin 1 GM TUBE NASAL DECOLONIZATION NASAL SCH (21:51)
[2025-04-21 05:58] LABS: Hematocrit 19.0 % (42.0-52.0); Hemoglobin 6.4 g/dL (14.0-18.0); Mean Corpuscular Hemoglobin 30.5 pg (27.0-31.0); Mean Corpuscular Volume 90.5 fL (78.0-98.0); Platelet Count 153 10x3/uL (130-400); Red Blood Cell (RBC) Count 2.10 mill/uL (4.70-6.10); White Blood Cell (WBC) Count 9.41 10x3/uL (4.8-10.8)
[2025-04-21 06:10] LABS: ALT (SGPT) 9 U/L (Less than 45); AST (SGOT) 15 U/L (11-34); Albumin 1.9 g/dL (3.1-4.5); Alkaline Phosphatase 32 U/L (40-110); Anion Gap 19 mmol/L (10-20); BUN (Urea Nitrogen) 71 mg/dL (8.4-25.7); Bilirubin, Total 0.6 mg/dL (0.3-1.2); Calc. Creatinine Clearance 21 mL/min (70-130); Calcium 8.3 mg/dL (7.8-10.44); Carbon Dioxide 19 mmol/L (23-31); Chloride 103 mmol/L (98-107); Globulin 3.4 g/dL (2.4-3.5); Glucose 271 mg/dL (80-115); Potassium 4.1 mmol/L (3.5-5.1); Sodium 137 mmol/L (136-145)
[2025-04-21 06:30] LABS: Platelet Adequacy Comment Platelets Normal; Polychromasia SLIGHT = 2-3 cells HPF (0-2); Smudge Cells 5.9 %
[2025-04-21] MEDS ORDERED: Albumin 25% 25 GM (100 mL) BOT IVPB SCH (09:30)
[2025-04-21 13:47] LABS: Hematocrit 18.8 % (42.0-52.0); Hemoglobin 6.0 g/dL (14.0-18.0); Mean Corpuscular Hemoglobin 29.1 pg (27.0-31.0); Mean Corpuscular Volume 91.3 fL (78.0-98.0); Platelet Count 156 10x3/uL (130-400); Red Blood Cell (RBC) Count 2.06 mill/uL (4.70-6.10); White Blood Cell (WBC) Count 9.90 10x3/uL (4.8-10.8)
[2025-04-21 14:08] LABS: Macrocytosis SLIGHT = 6-15 cells HPF (0-5); Microcytosis SLIGHT = 6-15 cells HPF (0-5); Platelet Adequacy Comment Platelets Normal; Polychromasia SLIGHT = 2-3 cells HPF (0-2); Schistocytes SLIGHT = 2-5 cells HPF (0-1); Smudge Cells 2.0 %
[2025-04-21 17:50] LABS: Glucose 250 mg/dL (80-115)
[2025-04-22 05:12] LABS: Anion Gap 21 mmol/L (10-20); BUN (Urea Nitrogen) 79 mg/dL (8.4-25.7); Calc. Creatinine Clearance 20 mL/min (70-130); Calcium 8.9 mg/dL (7.8-10.44); Carbon Dioxide 19 mmol/L (23-31); Chloride 102 mmol/L (98-107); Glucose 325 mg/dL (80-115); Potassium 3.9 mmol/L (3.5-5.1); Sodium 138 mmol/L (136-145)
[2025-04-22] MEDS: LevoFLOXacin 500 mg/D5W 500 MG in Premix 1 BAG IVPB SCH (07:07)
[2025-04-22 08:13] LABS: #Basophils 0.03 10x3/uL (0.0-0.2); #Eosinophils 0.12 10x3/uL (0.0-0.7); #Monocytes 0.74 10x3/uL (0.11-0.59); #Neutrophils 11.41 10x3/uL (1.40-6.50); %Basophils 0.2 % (0.0-1.0); %Eosinophils 0.9 % (0.0-10.0); %Lymphocytes 7.6 % (21.0-51.0); %Monocytes 5.5 % (0.0-10.0); %Neutrophils 84.5 % (42.0-75.0); Hematocrit 21.1 % (42.0-52.0); Hemoglobin 6.9 g/dL (14.0-18.0); Mean Corpuscular Hemoglobin 29.7 pg (27.0-31.0); Mean Corpuscular Volume 90.9 fL (78.0-98.0); Platelet Count 173 10x3/uL (130-400); Red Blood Cell (RBC) Count 2.32 mill/uL (4.70-6.10); White Blood Cell (WBC) Count 13.50 10x3/uL (4.8-10.8)
[2025-04-22] MEDS: Insulin Glargine 30 UNITS/0.3 ML VIAL SC SCH (09:52)
[2025-04-22 11:41] LABS: Vancomycin, Trough 25.3 ug/mL
[2025-04-22] MEDS: Acetaminophen 325 MG TAB PO PRN (14:21)
[2025-04-22 18:33] LABS: Hematocrit 23.0 % (42.0-52.0); Hemoglobin 7.6 g/dL (14.0-18.0)
[2025-04-22] MEDS: Heparin 5,000 UNITS/ML VIAL SC SCH (20:52)
[2025-04-23 04:42] LABS: #Basophils Less than 0.03 10x3/uL (0.0-0.2); #Eosinophils 0.16 10x3/uL (0.0-0.7); #Monocytes 0.85 10x3/uL (0.11-0.59); #Neutrophils 11.64 10x3/uL (1.40-6.50); %Basophils 0.1 % (0.0-1.0); %Eosinophils 1.2 % (0.0-10.0); %Lymphocytes 6.4 % (21.0-51.0); %Monocytes 6.1 % (0.0-10.0); %Neutrophils 84.2 % (42.0-75.0); Hematocrit 24.1 % (42.0-52.0); Hemoglobin 8.1 g/dL (14.0-18.0); Mean Corpuscular Hemoglobin 29.7 pg (27.0-31.0); Mean Corpuscular Volume 88.3 fL (78.0-98.0); Platelet Count 179 10x3/uL (130-400); Red Blood Cell (RBC) Count 2.73 mill/uL (4.70-6.10); White Blood Cell (WBC) Count 13.83 10x3/uL (4.8-10.8)
[2025-04-23 05:15] LABS: Anion Gap 19 mmol/L (10-20); BUN (Urea Nitrogen) 86 mg/dL (8.4-25.7); Calc. Creatinine Clearance 19 mL/min (70-130); Calcium 8.9 mg/dL (7.8-10.44); Carbon Dioxide 19 mmol/L (23-31); Chloride 103 mmol/L (98-107); Glucose 354 mg/dL (80-115); Potassium 3.8 mmol/L (3.5-5.1); Sodium 137 mmol/L (136-145)
[2025-04-23] MEDS: EPOETIN ALFA-EPBX (ESRD) 10,000 UNITS/ML VIAL IVP SCH (08:41)
[2025-04-23] MEDS: Lansoprazole 30 MG/10 ML UDCUP PER TUBE SCH (08:41)
[2025-04-24 04:53] LABS: #Basophils 0.04 10x3/uL (0.0-0.2); #Eosinophils 0.12 10x3/uL (0.0-0.7); #Monocytes 0.77 10x3/uL (0.11-0.59); #Neutrophils 12.84 10x3/uL (1.40-6.50); %Basophils 0.3 % (0.0-1.0); %Eosinophils 0.8 % (0.0-10.0); %Lymphocytes 4.6 % (21.0-51.0); %Monocytes 5.2 % (0.0-10.0); %Neutrophils 86.8 % (42.0-75.0); Hematocrit 24.7 % (42.0-52.0); Hemoglobin 8.0 g/dL (14.0-18.0); Mean Corpuscular Hemoglobin 29.5 pg (27.0-31.0); Mean Corpuscular Volume 91.1 fL (78.0-98.0); Platelet Count 180 10x3/uL (130-400); Red Blood Cell (RBC) Count 2.71 mill/uL (4.70-6.10); White Blood Cell (WBC) Count 14.79 10x3/uL (4.8-10.8)
[2025-04-24 05:06] LABS: Anion Gap 21 mmol/L (10-20); BUN (Urea Nitrogen) 91 mg/dL (8.4-25.7); Calc. Creatinine Clearance 19 mL/min (70-130); Calcium 9.1 mg/dL (7.8-10.44); Carbon Dioxide 18 mmol/L (23-31); Chloride 104 mmol/L (98-107); Glucose 262 mg/dL (80-115); Potassium 4.1 mmol/L (3.5-5.1); Sodium 139 mmol/L (136-145)
[2025-04-24 05:25] LABS: Hep B Core Total Index 0.08 S/CO (0-0.79); Hep C Index 0.14 S/CO (0-0.79)
[2025-04-24 05:58] LABS: HBSAB Concentration 10.91 mIU/mL; Hep B Core Total Ab NONREACTIVE (NonReactive); Hep B Surf Ag NONREACTIVE S/CO (NonReactive); Hep C IgG Ab NONREACTIVE S/CO (NonReactive)
[2025-04-24] MEDS: EPOETIN ALFA-EPBX (ESRD) 10,000 UNITS/ML VIAL IVP SCH (10:27)
[2025-04-24] MEDS: Albumin 25% 25 GM (100 mL) BOT IVPB PRN (12:53)
[2025-04-24] MEDS: Insulin Glargine 30 UNITS/0.3 ML VIAL SC SCH (20:32)
[2025-04-24] MEDS: Senokot S 8.6-50 MG TAB PO SCH (20:40)
[2025-04-25 04:10] LABS: Hematocrit 25.2 % (42.0-52.0); Hemoglobin 8.1 g/dL (14.0-18.0); Mean Corpuscular Hemoglobin 29.5 pg (27.0-31.0); Mean Corpuscular Volume 91.6 fL (78.0-98.0); Platelet Count 200 10x3/uL (130-400); Red Blood Cell (RBC) Count 2.75 mill/uL (4.70-6.10); White Blood Cell (WBC) Count 12.62 10x3/uL (4.8-10.8)
[2025-04-25 04:24] LABS: Anion Gap 25 mmol/L (10-20); BUN (Urea Nitrogen) 73 mg/dL (8.4-25.7); Calc. Creatinine Clearance 22 mL/min (70-130); Calcium 9.5 mg/dL (7.8-10.44); Carbon Dioxide 20 mmol/L (23-31); Chloride 96 mmol/L (98-107); Glucose 442 mg/dL (80-115); Potassium 4.9 mmol/L (3.5-5.1); Sodium 136 mmol/L (136-145)
[2025-04-25 04:40] LABS: Platelet Adequacy Comment Platelets Normal; Polychromasia SLIGHT = 2-3 cells HPF (0-2)
[2025-04-25 06:38] LABS: Actual Bicarbonate (HCO3a) 19.2 mEq/L (22-28); Base Excess (BEa) -4.9 mEq/L (-2.0 to +3.0); CO2 Tension 31.9 mmHg (35.0-45.0); Calcium, Ionized (arterial) 1.15 mmol/L (1.12-1.30); Hematocrit-ABG 28 % (42.0-52.0); Hemoglobin (Hb) 9.4 g/dL (14.0-18.0); O2 Tension (PaO2), arterial 81.7 mmHg (> 80.0); Potassium - ABG Lab 4.58 mmol/L (3.70-5.30); pH, Arterial 7.397 (7.35-7.45)
[2025-04-25 06:40] LABS: Puncture Site Right Brachial art
[2025-04-25] MEDS: EPOETIN ALFA-EPBX (ESRD) 10,000 UNITS/ML VIAL SC SCH (09:40)
[2025-04-25] MEDS: INSULIN REGULAR IN 0.9 % NACL 100 ML IVPB SCH (12:51)
[2025-04-25 13:38] LABS: Anion Gap 26 mmol/L (10-20); BUN (Urea Nitrogen) 92 mg/dL (8.4-25.7); Calc. Creatinine Clearance 19 mL/min (70-130); Calcium 9.4 mg/dL (7.8-10.44); Carbon Dioxide 18 mmol/L (23-31); Chloride 95 mmol/L (98-107); Glucose 516 mg/dL (80-115); Potassium 4.7 mmol/L (3.5-5.1); Sodium 134 mmol/L (136-145)
[2025-04-25 18:46] LABS: Anion Gap 20 mmol/L (10-20); BUN (Urea Nitrogen) 93 mg/dL (8.4-25.7); Calc. Creatinine Clearance 18 mL/min (70-130); Calcium 9.5 mg/dL (7.8-10.44); Carbon Dioxide 22 mmol/L (23-31); Chloride 97 mmol/L (98-107); Glucose 350 mg/dL (80-115); Potassium 4.4 mmol/L (3.5-5.1); Sodium 135 mmol/L (136-145)
[2025-04-26] MEDS: Albumin 25% 25 GM (100 mL) BOT IVPB SCH (01:02)
[2025-04-26 01:06] LABS: Anion Gap 20 mmol/L (10-20); BUN (Urea Nitrogen) 52 mg/dL (8.4-25.7); Calc. Creatinine Clearance 34 mL/min (70-130); Calcium 9.9 mg/dL (7.8-10.44); Carbon Dioxide 26 mmol/L (23-31); Chloride 95 mmol/L (98-107); Glucose 140 mg/dL (80-115); Potassium 3.8 mmol/L (3.5-5.1); Sodium 137 mmol/L (136-145)
[2025-04-26] MEDS: Heparin 10,000 UNITS/ 10 ML VIAL CATH PRN (02:10)
[2025-04-26 04:57] LABS: Anion Gap 18 mmol/L (10-20); BUN (Urea Nitrogen) 52 mg/dL (8.4-25.7); Calc. Creatinine Clearance 31 mL/min (70-130); Calcium 9.4 mg/dL (7.8-10.44); Carbon Dioxide 27 mmol/L (23-31); Chloride 96 mmol/L (98-107); Glucose 182 mg/dL (80-115); Potassium 3.6 mmol/L (3.5-5.1); Sodium 137 mmol/L (136-145)
[2025-04-26 06:32] LABS: Actual Bicarbonate (HCO3a) 27.9 mEq/L (22-28); Base Excess (BEa) 3.3 mEq/L (-2.0 to +3.0); CO2 Tension 42.9 mmHg (35.0-45.0); Calcium, Ionized (arterial) 1.11 mmol/L (1.12-1.30); Hematocrit-ABG 27 % (42.0-52.0); Hemoglobin (Hb) 9.3 g/dL (14.0-18.0); O2 Tension (PaO2), arterial 92.3 mmHg (> 80.0); Potassium - ABG Lab 3.63 mmol/L (3.70-5.30); pH, Arterial 7.431 (7.35-7.45)
[2025-04-26 06:39] LABS: Puncture Site Right Brachial art
[2025-04-26 08:00] LABS: Hematocrit 25.5 % (42.0-52.0); Hemoglobin 8.3 g/dL (14.0-18.0); Mean Corpuscular Hemoglobin 29.4 pg (27.0-31.0); Mean Corpuscular Volume 90.4 fL (78.0-98.0); Platelet Count 265 10x3/uL (130-400); Red Blood Cell (RBC) Count 2.82 mill/uL (4.70-6.10); White Blood Cell (WBC) Count 12.86 10x3/uL (4.8-10.8)
[2025-04-26 08:48] LABS: Anisocytosis SLIGHT = 6-15 cells HPF (0-5); Burr Cells SLIGHT = 2-5 cells HPF (0-1); Microcytosis SLIGHT = 6-15 cells HPF (0-5); Platelet Adequacy Comment Platelets Normal; Polychromasia SLIGHT = 2-3 cells HPF (0-2); Schistocytes SLIGHT = 2-5 cells HPF (0-1); Smudge Cells 21.6 %
[2025-04-26 13:56] LABS: Anion Gap 19 mmol/L (10-20); BUN (Urea Nitrogen) 65 mg/dL (8.4-25.7); Calc. Creatinine Clearance 28 mL/min (70-130); Calcium 9.2 mg/dL (7.8-10.44); Carbon Dioxide 26 mmol/L (23-31); Chloride 94 mmol/L (98-107); Glucose 190 mg/dL (80-115); Potassium 4.0 mmol/L (3.5-5.1); Sodium 135 mmol/L (136-145)
[2025-04-27 01:08] LABS: Anion Gap 21 mmol/L (10-20); BUN (Urea Nitrogen) 88 mg/dL (8.4-25.7); Calc. Creatinine Clearance 25 mL/min (70-130); Calcium 8.8 mg/dL (7.8-10.44); Carbon Dioxide 24 mmol/L (23-31); Chloride 96 mmol/L (98-107); Glucose 156 mg/dL (80-115); Potassium 3.6 mmol/L (3.5-5.1); Sodium 137 mmol/L (136-145)
[2025-04-27 04:03] LABS: Hematocrit 25.1 % (42.0-52.0); Hemoglobin 8.1 g/dL (14.0-18.0); Mean Corpuscular Hemoglobin 29.1 pg (27.0-31.0); Mean Corpuscular Volume 90.3 fL (78.0-98.0); Platelet Count 281 10x3/uL (130-400); Red Blood Cell (RBC) Count 2.78 mill/uL (4.70-6.10); White Blood Cell (WBC) Count 9.45 10x3/uL (4.8-10.8)
[2025-04-27 04:24] LABS: Anion Gap 21 mmol/L (10-20); BUN (Urea Nitrogen) 95 mg/dL (8.4-25.7); Calc. Creatinine Clearance 24 mL/min (70-130); Calcium 8.8 mg/dL (7.8-10.44); Carbon Dioxide 24 mmol/L (23-31); Chloride 95 mmol/L (98-107); Glucose 150 mg/dL (80-115); Potassium 3.6 mmol/L (3.5-5.1); Sodium 136 mmol/L (136-145)
[2025-04-27 04:44] LABS: Anisocytosis SLIGHT = 6-15 cells HPF (0-5); Platelet Adequacy Comment Platelets Normal; Polychromasia SLIGHT = 2-3 cells HPF (0-2)
[2025-04-27 08:36] LABS: BUN (Urea Nitrogen) 96 mg/dL (8.4-25.7); Calc. Creatinine Clearance 23 mL/min (70-130); Calcium 8.7 mg/dL (7.8-10.44); Carbon Dioxide 26 mmol/L (23-31); Glucose 138 mg/dL (80-115)
[2025-04-27 08:39] LABS: Anion Gap 21 mmol/L (10-20); Chloride 96 mmol/L (98-107); Potassium 3.5 mmol/L (3.5-5.1); Sodium 136 mmol/L (136-145)
[2025-04-27] MEDS: hydrALAZINE 20 MG/ML VIAL SLOW IVP PRN (18:08)
[2025-04-27] MEDS: Insulin Glargine 30 UNITS/0.3 ML VIAL SC SCH (20:05)
[2025-04-27] MEDS: hydrALAZINE 20 MG/ML VIAL SLOW IVP SCH (21:11)
[2025-04-28 03:59] LABS: Hematocrit 27.2 % (42.0-52.0); Hemoglobin 8.8 g/dL (14.0-18.0); Mean Corpuscular Hemoglobin 29.0 pg (27.0-31.0); Mean Corpuscular Volume 89.8 fL (78.0-98.0); Platelet Count 302 10x3/uL (130-400); Red Blood Cell (RBC) Count 3.03 mill/uL (4.70-6.10); White Blood Cell (WBC) Count 15.10 10x3/uL (4.8-10.8)
[2025-04-28 04:16] LABS: Anion Gap 18 mmol/L (10-20); BUN (Urea Nitrogen) 64 mg/dL (8.4-25.7); Calc. Creatinine Clearance 29 mL/min (70-130); Calcium 8.9 mg/dL (7.8-10.44); Carbon Dioxide 23 mmol/L (23-31); Chloride 98 mmol/L (98-107); Glucose 348 mg/dL (80-115); Potassium 4.5 mmol/L (3.5-5.1); Sodium 134 mmol/L (136-145)
[2025-04-28 04:44] LABS: Nucleated RBC (Manual Ct) 1 % (0); Platelet Adequacy Comment Platelets Normal; RBC Morphology Within Normal Limits; Smudge Cells 7.8 %
[2025-04-28 15:06] VITALS: BMI 36.8
[2025-04-29 02:44] LABS: Hematocrit 26.3 % (42.0-52.0); Hemoglobin 8.4 g/dL (14.0-18.0); Mean Corpuscular Hemoglobin 29.3 pg (27.0-31.0); Mean Corpuscular Volume 91.6 fL (78.0-98.0); Platelet Count 320 10x3/uL (130-400); Red Blood Cell (RBC) Count 2.87 mill/uL (4.70-6.10); White Blood Cell (WBC) Count 13.25 10x3/uL (4.8-10.8)
[2025-04-29 03:03] LABS: Platelet Adequacy Comment Platelets Normal; Polychromasia SLIGHT = 2-3 cells HPF (0-2)
[2025-04-29 03:51] LABS: Anion Gap 21 mmol/L (10-20); BUN (Urea Nitrogen) 94 mg/dL (8.4-25.7); Calc. Creatinine Clearance 24 mL/min (70-130); Calcium 9.0 mg/dL (7.8-10.44); Carbon Dioxide 18 mmol/L (23-31); Chloride 99 mmol/L (98-107); Glucose 311 mg/dL (80-115); Potassium 4.1 mmol/L (3.5-5.1); Sodium 134 mmol/L (136-145)
[2025-04-29] MEDS ORDERED: fentaNYL PF 100 MCG/2 ML SYRINGE ONE (12:15)
[2025-04-29] MEDS ORDERED: PHENYLEPHRINE-NS 100 MCG/ML 10 ML SYRINGE ONE (12:48)
[2025-04-29] MEDS: Heparin 10,000 UNITS/ 10 ML VIAL FS SCH (19:15)
[2025-04-30 04:37] LABS: #Basophils Less than 0.03 10x3/uL (0.0-0.2); #Eosinophils 0.12 10x3/uL (0.0-0.7); #Monocytes 0.67 10x3/uL (0.11-0.59); #Neutrophils 10.87 10x3/uL (1.40-6.50); %Basophils 0.1 % (0.0-1.0); %Eosinophils 0.9 % (0.0-10.0); %Lymphocytes 7.3 % (21.0-51.0); %Monocytes 5.2 % (0.0-10.0); %Neutrophils 83.9 % (42.0-75.0); Hematocrit 27.2 % (42.0-52.0); Hemoglobin 8.6 g/dL (14.0-18.0); Mean Corpuscular Hemoglobin 28.9 pg (27.0-31.0); Mean Corpuscular Volume 91.3 fL (78.0-98.0); Platelet Count 333 10x3/uL (130-400); Red Blood Cell (RBC) Count 2.98 mill/uL (4.70-6.10); White Blood Cell (WBC) Count 12.94 10x3/uL (4.8-10.8)
[2025-04-30 05:20] LABS: Anion Gap 18 mmol/L (10-20); BUN (Urea Nitrogen) 56 mg/dL (8.4-25.7); Calc. Creatinine Clearance 31 mL/min (70-130); Calcium 8.5 mg/dL (7.8-10.44); Carbon Dioxide 25 mmol/L (23-31); Chloride 96 mmol/L (98-107); Glucose 160 mg/dL (80-115); Potassium 3.7 mmol/L (3.5-5.1); Sodium 135 mmol/L (136-145)
[2025-04-30] MEDS: Bisacodyl 10 MG SUPP PR SCH (17:14)
[2025-05-01 03:01] LABS: #Basophils Less than 0.03 10x3/uL (0.0-0.2); #Eosinophils 0.10 10x3/uL (0.0-0.7); #Monocytes 0.64 10x3/uL (0.11-0.59); #Neutrophils 9.06 10x3/uL (1.40-6.50); %Basophils 0.1 % (0.0-1.0); %Eosinophils 0.9 % (0.0-10.0); %Lymphocytes 9.4 % (21.0-51.0); %Monocytes 5.8 % (0.0-10.0); %Neutrophils 82.5 % (42.0-75.0); Hematocrit 26.1 % (42.0-52.0); Hemoglobin 8.4 g/dL (14.0-18.0); Mean Corpuscular Hemoglobin 29.0 pg (27.0-31.0); Mean Corpuscular Volume 90.0 fL (78.0-98.0); Platelet Count 340 10x3/uL (130-400); Red Blood Cell (RBC) Count 2.90 mill/uL (4.70-6.10); White Blood Cell (WBC) Count 10.98 10x3/uL (4.8-10.8)
[2025-05-01 03:19] LABS: Anion Gap 19 mmol/L (10-20); BUN (Urea Nitrogen) 78 mg/dL (8.4-25.7); Calc. Creatinine Clearance 23 mL/min (70-130); Calcium 8.4 mg/dL (7.8-10.44); Carbon Dioxide 23 mmol/L (23-31); Chloride 97 mmol/L (98-107); Glucose 200 mg/dL (80-115); Potassium 3.9 mmol/L (3.5-5.1); Sodium 135 mmol/L (136-145)
[2025-05-01] MEDS: Bisacodyl 10 MG SUPP PR PRN (13:22)
[2025-05-02] MEDS: Transdermal Patch Removal TOP SCH (03:42)
[2025-05-02 13:17] LABS: #Basophils Less than 0.03 10x3/uL (0.0-0.2); #Eosinophils 0.03 10x3/uL (0.0-0.7); #Monocytes 0.34 10x3/uL (0.11-0.59); #Neutrophils 8.10 10x3/uL (1.40-6.50); %Basophils 0.2 % (0.0-1.0); %Eosinophils 0.3 % (0.0-10.0); %Lymphocytes 7.2 % (21.0-51.0); %Monocytes 3.7 % (0.0-10.0); %Neutrophils 87.0 % (42.0-75.0); Hematocrit 29.8 % (42.0-52.0); Hemoglobin 9.3 g/dL (14.0-18.0); Mean Corpuscular Hemoglobin 28.4 pg (27.0-31.0); Mean Corpuscular Volume 90.9 fL (78.0-98.0); Platelet Count 371 10x3/uL (130-400); Red Blood Cell (RBC) Count 3.28 mill/uL (4.70-6.10); White Blood Cell (WBC) Count 9.31 10x3/uL (4.8-10.8)
[2025-05-02 13:33] LABS: Anion Gap 23 mmol/L (10-20); BUN (Urea Nitrogen) 71 mg/dL (8.4-25.7); Calc. Creatinine Clearance 24 mL/min (70-130); Calcium 9.0 mg/dL (7.8-10.44); Carbon Dioxide 24 mmol/L (23-31); Chloride 99 mmol/L (98-107); Glucose 251 mg/dL (80-115); Magnesium 2.6 mg/dL (1.6-2.6); Potassium 4.5 mmol/L (3.5-5.1); Sodium 141 mmol/L (136-145)
[2025-05-02] MEDS: Lactulose 20 GM (30 mL) UDCUP PO SCH (14:54)
[2025-05-03 05:28] LABS: #Basophils Less than 0.03 10x3/uL (0.0-0.2); #Eosinophils 0.08 10x3/uL (0.0-0.7); #Monocytes 0.76 10x3/uL (0.11-0.59); #Neutrophils 6.10 10x3/uL (1.40-6.50); %Basophils 0.1 % (0.0-1.0); %Eosinophils 0.9 % (0.0-10.0); %Lymphocytes 17.3 % (21.0-51.0); %Monocytes 8.9 % (0.0-10.0); %Neutrophils 71.5 % (42.0-75.0); Hematocrit 28.8 % (42.0-52.0); Hemoglobin 9.0 g/dL (14.0-18.0); Mean Corpuscular Hemoglobin 28.5 pg (27.0-31.0); Mean Corpuscular Volume 91.1 fL (78.0-98.0); Platelet Count 393 10x3/uL (130-400); Red Blood Cell (RBC) Count 3.16 mill/uL (4.70-6.10); White Blood Cell (WBC) Count 8.54 10x3/uL (4.8-10.8)
[2025-05-03 05:49] LABS: Anion Gap 17 mmol/L (10-20); BUN (Urea Nitrogen) 77 mg/dL (8.4-25.7); Calc. Creatinine Clearance 23 mL/min (70-130); Calcium 8.8 mg/dL (7.8-10.44); Carbon Dioxide 25 mmol/L (23-31); Chloride 101 mmol/L (98-107); Glucose 152 mg/dL (80-115); Potassium 4.0 mmol/L (3.5-5.1); Sodium 139 mmol/L (136-145)
[2025-05-04 06:33] LABS: #Basophils Less than 0.03 10x3/uL (0.0-0.2); #Eosinophils 0.14 10x3/uL (0.0-0.7); #Monocytes 0.70 10x3/uL (0.11-0.59); #Neutrophils 4.61 10x3/uL (1.40-6.50); %Basophils 0.3 % (0.0-1.0); %Eosinophils 2.0 % (0.0-10.0); %Lymphocytes 19.8 % (21.0-51.0); %Monocytes 10.1 % (0.0-10.0); %Neutrophils 66.5 % (42.0-75.0); Hematocrit 31.3 % (42.0-52.0); Hemoglobin 9.8 g/dL (14.0-18.0); Mean Corpuscular Hemoglobin 28.6 pg (27.0-31.0); Mean Corpuscular Volume 91.3 fL (78.0-98.0); Platelet Count 406 10x3/uL (130-400); Red Blood Cell (RBC) Count 3.43 mill/uL (4.70-6.10); White Blood Cell (WBC) Count 6.93 10x3/uL (4.8-10.8)
[2025-05-04 06:53] LABS: Anion Gap 18 mmol/L (10-20); BUN (Urea Nitrogen) 81 mg/dL (8.4-25.7); Calc. Creatinine Clearance 23 mL/min (70-130); Calcium 8.6 mg/dL (7.8-10.44); Carbon Dioxide 22 mmol/L (23-31); Chloride 104 mmol/L (98-107); Glucose 122 mg/dL (80-115); Potassium 3.9 mmol/L (3.5-5.1); Sodium 140 mmol/L (136-145)
[2025-05-05] MEDS: Benzocaine/Menthol 1 LOZ LOZ PO PRN (02:57)
[2025-05-05 04:19] VITALS: BMI 35.8
[2025-05-05 06:20] LABS: #Basophils 0.03 10x3/uL (0.0-0.2); #Eosinophils 0.12 10x3/uL (0.0-0.7); #Monocytes 0.81 10x3/uL (0.11-0.59); #Neutrophils 4.34 10x3/uL (1.40-6.50); %Basophils 0.4 % (0.0-1.0); %Eosinophils 1.7 % (0.0-10.0); %Lymphocytes 22.1 % (21.0-51.0); %Monocytes 11.6 % (0.0-10.0); %Neutrophils 62.2 % (42.0-75.0); Hematocrit 31.0 % (42.0-52.0); Hemoglobin 9.8 g/dL (14.0-18.0); Mean Corpuscular Hemoglobin 29.0 pg (27.0-31.0); Mean Corpuscular Volume 91.7 fL (78.0-98.0); Platelet Count 360 10x3/uL (130-400); Red Blood Cell (RBC) Count 3.38 mill/uL (4.70-6.10); White Blood Cell (WBC) Count 6.98 10x3/uL (4.8-10.8)
[2025-05-05 06:23] LABS: Anion Gap 17 mmol/L (10-20); BUN (Urea Nitrogen) 61 mg/dL (8.4-25.7); Calc. Creatinine Clearance 30 mL/min (70-130); Calcium 8.4 mg/dL (7.8-10.44); Carbon Dioxide 24 mmol/L (23-31); Chloride 101 mmol/L (98-107); Glucose 163 mg/dL (80-115); Potassium 4.1 mmol/L (3.5-5.1); Sodium 138 mmol/L (136-145)
[2025-05-05] MEDS: ALPRAZolam 0.25 MG TAB PO PRN (08:05)
[2025-05-05] MEDS: Acetaminophen/Codeine 30-300mg Tablet PO SCH (20:47)
[2025-05-05 20:49] VITALS: BP 123/56; TEMP 98.1
== END 2025-05-05 21:15 | DRG 870 ==
LOC: ERS 03:37 → CCU 07:59 → T4-A 05-02 18:16
PROVIDERS: ADMIT Family Medicine; ATTEND Internal Medicine
PROC: 06HN33Z Insertion of Infusion Device into Left Femoral Vein, Percutaneous Approach (ICD-10-PCS; principal; 2025-04-20)
PROC: 0BH17EZ Insertion of Endotracheal Airway into Trachea, Via Natural or Artificial Opening (ICD-10-PCS; 2025-04-20)
PROC: 0B9J8ZZ Drainage of Left Lower Lung Lobe, Via Natural or Artificial Opening Endoscopic (ICD-10-PCS; 2025-04-20)
PROC: 4A133R1 Monitoring of Arterial Saturation, Peripheral, Percutaneous Approach (ICD-10-PCS; 2025-04-20)
PROC: 5A1955Z Respiratory Ventilation, Greater than 96 Consecutive Hours (ICD-10-PCS; 2025-04-20)
PROC: 5A1D70Z Performance of Urinary Filtration, Intermittent, Less than 6 Hours Per Day (ICD-10-PCS; 2025-04-24)
PROC: 0JH63XZ Insertion of Tunneled Vascular Access Device into Chest Subcutaneous Tissue and Fascia, Percutaneous Approach (ICD-10-PCS; 2025-04-29)
PROC: 02HV33Z Insertion of Infusion Device into Superior Vena Cava, Percutaneous Approach (ICD-10-PCS; 2025-04-29)
PROC: B5181ZA Fluoroscopy of Superior Vena Cava using Low Osmolar Contrast, Guidance (ICD-10-PCS; 2025-04-29)
PROC: B548ZZA Ultrasonography of Superior Vena Cava, Guidance (ICD-10-PCS; 2025-04-29)
PROC: 5A09357 Assistance with Respiratory Ventilation, Less than 24 Consecutive Hours, Continuous Positive Airway Pressure (ICD-10-PCS; 2025-05-01)
PROC: 5A09357 Assistance with Respiratory Ventilation, Less than 24 Consecutive Hours, Continuous Positive Airway Pressure (ICD-10-PCS; 2025-05-03)
DX: A41.9 Sepsis, unspecified organism (principal); G93.41 Metabolic encephalopathy; J18.9 Pneumonia, unspecified organism; J96.01 Acute respiratory failure with hypoxia; N18.6 End stage renal disease; S22.39XA Fracture of one rib, unspecified side, initial encounter for closed fracture; I50.32 Chronic diastolic (congestive) heart failure; Z51.5 Encounter for palliative care; R65.20 Severe sepsis without septic shock; E78.5 Hyperlipidemia, unspecified; J44.9 Chronic obstructive pulmonary disease, unspecified; E66.01 Morbid (severe) obesity due to excess calories; Z98.890 Other specified postprocedural states; Z79.899 Other long term (current) drug therapy; K21.9 Gastro-esophageal reflux disease without esophagitis; Z87.891 Personal history of nicotine dependence; Z82.49 Family history of ischemic heart disease and other diseases of the circulatory system; Z80.0 Family history of malignant neoplasm of digestive organs; Z88.0 Allergy status to penicillin; Z88.2 Allergy status to sulfonamides; Z88.8 Allergy status to other drugs, medicaments and biological substances; Z91.048 Other nonmedicinal substance allergy status; V89.1XXD Person injured in unspecified nonmotor-vehicle accident, nontraffic, subsequent encounter; I11.0 Hypertensive heart disease with heart failure; D72.829 Elevated white blood cell count, unspecified; E88.09 Other disorders of plasma-protein metabolism, not elsewhere classified; D63.8 Anemia in other chronic diseases classified elsewhere; E11.65 Type 2 diabetes mellitus with hyperglycemia; Z68.35 Body mass index [BMI] 35.0-35.9, adult; K59.00 Constipation, unspecified; S52.501G Unspecified fracture of the lower end of right radius, subsequent encounter for closed fracture with delayed healing; R53.81 Other malaise
CPT/HCPCS: 36415; 36416; 36430; 36600; 71045; 71250; 74230; 80048; 80053; 80202; 82805; 83036; 83605; 83690; 83735; 83880; 84100; 84484; 85025; 86704; 86706; 86803; 86850; 86900; 86901; 87040; 87081; 87340; 87428; 89220; 90935; 90945; 93005; 94002; 94003; 94640; 94660; 96365; 96375; A6258; C1750; C1769; G0257; J0169; J0360; J0665; J1642; J1644; J1815; J1940; J1956; J2250; J2270; J2272; J2470; J2704; J2919; J3373; J7030; J7050; P9016; P9047; Q5105